=== PATIENT | female | born 1980 | race Caucasian/White ===

== ENCOUNTER 2017-01-09 20:50 | Emergency (ER) | payer OTHER ==
[~2017-01-09] VITALS: Ht 152.4 cm; Wt 81.0 kg
[2017-01-09 21:01] VITALS: Ht 152.4 cm; Wt 81.0 kg
[2017-01-09] MEDS ORDERED: ACET500C5 PO (22:14)
[2017-01-09] MEDS ORDERED: AMO500 PO (22:14)
--- NOTE | 2017-01-09 22:22 | ERD ---
ER Documentation Chief Complaint Date/Time DATE: 01/09/17 TIME: 22:16 Chief Complaint c/o right ear pain x 2 days, no drainage HPI Patient is a 36-year-old 7 month female presents to the emergency department with right ear pain 2 days. Patient denies any active bleeding or discharge. Patient denies any loss of hearing. Patient denies any fevers, chills, nausea, vomiting, cough, abdominal pain, throat pain or rhinorrhea. No recent travel. No sick contacts. Patient denies any pelvic pain, vaginal bleeding, excessive vaginal discharge or loss of fluids. Patient states she does feel kicks. ROS All systems reviewed and are negative except as per history of present illness. Medications Home Meds Active Scripts Acetaminophen* (Tylophen*) 500 Mg Capsule, 1 CAP PO Q6H Y for PAIN AND OR ELEVATED TEMP, #20 CAP Prov:NICOLETTE KNAPP PA-C 01/09/17 Amoxicillin* (Amoxicillin*) 500 Mg Cap, 500 MG PO BID for 10 Days, CAP Prov:NICOLETTE KNAPP PA-C 01/09/17 Allergies Allergies: Coded Allergies: No Known Allergy (Unverified , 06/13/15) PMhx/Soc Medical and Surgical Hx: pt denies Medical Hx, pt denies Surgical Hx Hx Miscellaneous Medical Probl: Yes (None noted ) Hx Alcohol Use: No Hx Substance Use: No Hx Tobacco Use: No Smoking Status: Never smoker FmHx Family History: No diabetes Physical Exam Vitals Vital Signs Date Time Temp Pulse Resp B/P Pulse Ox O2 Delivery O2 Flow Rate FiO2 01/09/17 21:01 98.8 101 18 119/77 98 Physical Exam GENERAL: Well-developed, well-nourished female. Appears in no acute distress. Speaking in full sentences HEAD: Normocephalic, atraumatic. No deformities or ecchymosis. EYE: Pupils equal, round, and reactive to light. EOMs intact. No conjunctival erythema. No eye discharge. ENT: External ear without any masses or tenderness. Right auditory canal appears swollen. Tympanic membrane appears erythematous. Nontender palpation of bilateral mastoid processes.. Nasal mucosa pink with no discharge. Oropharynx is pink without any tonsillar erythema or exudates. No uvula deviation. No kissing tonsils. NECK: Supple. No meningismus. Normal ROM of the neck. LUNG: Clear to auscultation bilaterally. No rhonchi, wheezing, rales or coarse breath sounds. HEART: Regular rate and rhythm. No murmurs, rubs or gallops. ABDOMEN: Gravid abdomen. Positive bowel sounds in all four quadrants. No rebound tenderness, no guarding. (-) McBurney's point tenderness. No CVA tenderness. BACK: No midline tenderness. EXTREMITIES: Equal pulses bilaterally. No peripheral clubbing, cyanosis or edema. NEUROLOGIC: Alert and oriented to person, place and time. Moving all four extremities. 5/5 strength in all extremities. Normal speech. Steady gait. SKIN: Normal color. Warm and dry. No rashes or lesions. Procedures/MDM MEDICAL DECISION MAKING: This is a 36-year-old female presents with right ear pain 2 days.. Vital signs were reviewed. Patient was afebrile. Patient was not hypoxic. Patient denied any pelvic pain, vaginal bleeding, vaginal discharge or loss of fluids. Given these findings, the patient's presentation is most consistent with acute otitis media. Low suspicion for tympanic membrane perforation, mastoiditis, otic barotrauma, TMJ dysfunction, meningitis, sepsis. Patient will be discharged with instructions to go upstairs to the BUSINESS CONTINUITY GLOBAL DIRECTOR floor for clearance from the OB team. Nursing staff aware and will direct the patient upstairs. PRESCRIPTIONS: Amoxicillin, Tylenol DISCHARGE: At this time, patient is stable for discharge and outpatient management. Patient will be discharged with instructions to go to the BUSINESS CONTINUITY GLOBAL DIRECTOR floor for clearance from BUSINESS CONTINUITY GLOBAL DIRECTOR. I have instructed the patient to follow-up with his/her primary care physician in 1-2 days. I have discussed with the patient the possibility of needing to see a specialist for further workup and diagnostic studies if the pain persists. I have instructed the patient to promptly return to the ER at any time for any new or worsening symptoms including increased pain , fever, swelling, discharge or hearing loss. The patient and/or family expressed understanding of and agreement with this plan. All questions were answered. Home care instructions were provided. Departure Diagnosis: Primary Impression: Otitis media, right Otitis media type: unspecified Chronicity: unspecified Qualified Code: H66.91 - Right otitis media, unspecified chronicity, unspecified otitis media type Condition: Stable Patient Instructions: Otitis Media, Abx Tx (Adult) Referrals: COMMUNITY CLINICS YOU HAVE RECEIVED A MEDICAL SCREENING EXAM AND THE RESULTS INDICATE THAT YOU DO NOT HAVE A CONDITION THAT REQUIRES URGENT TREATMENT IN THE EMERGENCY DEPARTMENT. FURTHER EVALUATION AND TREATMENT OF YOUR CONDITION CAN WAIT UNTIL YOU ARE SEEN IN YOUR DOCTORS OFFICE WITHIN THE NEXT 1-2 DAYS. IT IS YOUR RESPONSIBILITY TO MAKE AN APPOINTMENT FOR FOLOW-UP CARE. IF YOU HAVE A PRIMARY DOCTOR --you should call your primary doctor and schedule an appointment IF YOU DO NOT HAVE A PRIMARY DOCTOR YOU CAN CALL OUR PHYSICIAN REFERRAL HOTLINE AT IF YOU CAN NOT AFFORD TO SEE A PHYSICIAN YOU CAN CHOSE FROM THE FOLLOWING [facility] [address] [facility]. [facility] [address] [facility]. [facility] [address] [facility] [facility] [address] [facility]. [facility] [address] [facility]. [facility] [address] [facility]. [facility] YOU HAVE RECEIVED A MEDICAL SCREENING EXAM AND THE RESULTS INDICATE THAT YOU DO NOT HAVE A CONDITION THAT REQUIRES URGENT TREATMENT IN THE EMERGENCY DEPARTMENT. FURTHER EVALUATION AND TREATMENT OF YOUR CONDITION CAN WAIT UNTIL YOU ARE SEEN IN YOUR DOCTORS OFFICE WITHIN THE NEXT 1-2 DAYS. IT IS YOUR RESPONSIBILITY TO MAKE AN APPOINTMENT FOR FOLOW-UP CARE. IF YOU HAVE A PRIMARY DOCTOR --you should call your primary doctor and schedule and appointment IF YOU DO NOT HAVE A PRIMARY DOCTOR YOU CAN CALL OUR PHYSICIAN REFERRAL HOTLINE AT . IF YOU CAN NOT AFFORD TO SEE A PHYSICIAN YOU CAN CHOSE FROM THE FOLLOWING [facility]: [facility] [address] [place] [address] [facility] [address] [place] [address] [facility] [address] [place] [address] [employer] GLOBAL DIRECTOR [place] [address] [facility] [address] [place] [address] OFFICE FAX TAMI REDDY [address] [place] [address] [address] [place]IS [place] [address] [place] [address] DR CADENA, [facility] [address], [address], [place] [address] [facility] [address] [place] [address] [facility] [address] [place] [address] [address] [facility] [address] - DR TEMPLE LIZZIE [address] [facility]. [address], [place] [address] DR ROMERO, SOF[address]A [address] [facility]. [address], [place] [address] DR TUBBS, [facility] [address] [place], [place] [id number] Additional Instructions: Call your primary care doctor TOMORROW for an appointment during the next 1-2 days.See the doctor sooner or return here if your condition worsens before your appointment time. She will be discharged upstairs for instructions to be cleared by BUSINESS CONTINUITY GLOBAL DIRECTOR. NICOLETTE KNAPP PA-C Jan 09, 2017 22:21
== END 2017-01-09 22:24 | disposition home or self-care (01) ==
LOC: FTE 20:50
DX: H66.91 Otitis media, unspecified, right ear (principal)
CPT/HCPCS: 99283

== ENCOUNTER 2017-01-09 22:45 | Outpatient (CLI) | payer OTHER ==
[~2017-01-09] VITALS: Ht 151.1 cm; Wt 85.6 kg
[~2017-01-09 22:45] MED LIST: ACET500C5 PO; AMO500 PO
[2017-01-09 23:08] VITALS: BP 132/72; PULSE 97; RESP 18
--- NOTE | 2017-01-10 00:19 | PN ---
Triage Information Date/Time January 09, 2017 Weeks of Gestation 28 weeks and 6 days : 3 Para: 2 Diabetes: none Hypertention: none Additional information 36-year-old with IUP at 28 weeks and 6 days was sent from ED after she was seen in the emergency room for right earache. She denied any fever or chills. She was given amoxicillin and Tylenol in the emergency room after she was examined and was diagnosed with ear infection. She denies any headache,. She denies any leaking of fluid vaginal bleeding or decreased movement. Reports her OB history completed by GDM A2 currently on insulin as well as baby aspirin. Objective Vital Signs Date Time Temp Pulse Resp B/P Pulse Ox O2 Delivery O2 Flow Rate FiO2 01/09/17 23:08 98.8 97 18 132/72 Room Air Heart Rate: 130's Heart Rate Comments Category 1 and appropriate for gestational age Exam General appearance: Alert and oriented 4. Patient appears to be in mild distress Abdomen: Soft, gravid, no tenderness NST: Category 1 Results/Medications Imaging Results PROCEDURE: ULTRASOUND OBSTETRICAL CLINICAL INDICATION: 35-year-old female in labor for size and date determination. TECHNIQUE: Multiple sonographic images of the pelvis were obtained. The images were reviewed on a PACS workstation. COMPARISON: Ultrasound OB biophysical profile June 03, 2015. FINDINGS: The cervix is not well visualized. There is a single viable intrauterine gestation. Cardiac activity is present with 159 beats per minute. There is a vertex presentation. Measurements were made in order to determine age. The results are as follows: BPD = 8.93 cm, HC = 32.05 cm, AC = 41.27 cm, FL = 7.76 cm. This yields and estimated gestational age of approximately 37 weeks 2 days. The estimated date of delivery is July 02, 2015. The EFW = 4501 +/- 675 g (9 lb 15 oz). The GP is greater than 97%. The placenta is anterior. There is no evidence for an abruption or placenta previa. IMPRESSION: 1. Single viable intrauterine gestation of approximately 37 weeks 2 days with vertex presentation. 2. The estimated weight is 4501 +/- 675 g (9 lb 15 oz). The GP is greater than 97%. Assessment/Plan IUP at 28 weeks and 6 days Right side otitis Has been evaluated in the ED. Was given amoxicillin and Tylenol No OB issue at this time. Denies any complaint NST category 1 DC home Continue amoxicillin and Tylenol and follow-up with her primary OB in 2 days labor precaution and strict kick count discussed with the patient Return to triage for any other concerns GARY GHOSH MD Jan 10, 2017 00:18
--- NOTE | 2017-01-10 01:34 | TRIAGE ---
OB Triage Datetime Report Generated by CPN: 01/10/2017 01:34 Datetime: 01/09/2017 23:04 Time of Arrival: 01/09/2017 22:28 EGA: 28.6 Arrived By: Ambulatory Arrived From: Emergency Dept Chief Complaint: Pt brought from ER for NST after being seen for rt earache Movement: Present Contractions: Denies/Absent Rupture of Membranes: Denies Vaginal Bleeding: None Vaginal Discharge: Denies Recent Sexual Intercouse: Denies Abdominal Trauma: Not Applicable Patient Complaints: Other Time Provider Notified: 01/09/2017 23:28 Provider Notified: Dr Lee Initial Plan: NST Datetime: 01/09/2017 23:03 Vaginal Exam Membrane Status: Intact
== END 2017-01-10 00:21 | disposition home or self-care (01) ==
LOC: OBT 22:45 → L-D 22:46 → OBT 01-10 00:21
PROVIDERS: ATTEND Obstetrics & Gynecology
DX: O98.812 Other maternal infectious and parasitic diseases complicating pregnancy, second trimester (principal); Z3A.28 28 weeks gestation of pregnancy; H66.91 Otitis media, unspecified, right ear
CPT/HCPCS: G0463

== ENCOUNTER 2017-02-19 14:54 | Outpatient (CLI) | payer OTHER ==
[~2017-02-19] VITALS: Ht 149.9 cm; Wt 89.0 kg
[~2017-02-19 14:54] MED LIST changes: +PREN-39 PO; +PRENAT PO
[2017-02-19 15:21] VITALS: BP 175/79; PULSE 98; RESP 18
[2017-02-19] MEDS ORDERED: PRENAT PO (15:55)
[2017-02-19] MEDS ORDERED: NOVO7030 SC ×2 (15:56→15:57)
[2017-02-19] MEDS ORDERED: NPH SQ ×2 (15:58→16:44)
[2017-02-19] MEDS ORDERED: SS SC ×2 (15:59→16:43)
--- NOTE | 2017-02-19 17:32 | RADRPT ---
PROCEDURE: US biophysical profile. CLINICAL INDICATION: Decreased motion. TECHNIQUE: Multiple sonographic images of the uterus were obtained. The images were revi ewed on a PACS workstation. COMPARISON: No prior studies are available for comparison. FINDINGS: There is a single live intrauterine gestation. heart rate is 141 beats per minute. The position is cephalic. The placenta is posterior grade II with no abruption or previa. The SOMMER is 13.4 cm. (Normal = 5-20 cm.) Breathing Movement: 2 Gross Body Movement: 2 Tone: 2 Qualitative Amniotic Fluid Volume: 2 TOTAL: 8 IMPRESSION: 1. The biophysical score is 8/8. RPTAT: QQ .Shady Wilson MD, MD Date Time Electronically viewed and signed by .Shady Wilson MD, on 02/19/2017 17:31 .R/
[2017-02-19 17:41] LABS: BASOPHILS % 0.3 % (0.0-2.0); EOSINOPHILS % 0.6 % (0.0-7.0); HEMATOCRIT 34.8 % (37.0-47.0); HEMOGLOBIN 11.6 g/dl (12.0-16.0); LYMPHOCYTES # 1.7 10^3/ul (0.8-2.9); LYMPHOCYTES % 26.4 % (15.0-51.0); MEAN CORPUSCULAR HGB CONC 33.3 g/dl (32.0-37.0); MEAN CORPUSCULAR VOLUME 80.9 fl (82.0-101.0); MEAN PLATELET VOLUME 12.1 fl (7.4-10.4); MONOCYTE # 0.5 10^3/ul (0.3-0.9); MONOCYTES % 7.4 % (0.0-11.0); NEUTROPHILS % 64.8 % (39.0-77.0); NUCLEATED RED BLOOD CELLS% 0.3 /100WBC (0.0-0.0); PLATELET COUNT 220 10^3/UL (140-415); RED CELL DISTRIBUTION WIDTH 13.1 % (11.5-14.5); WHITE BLOOD COUNT 6.5 10^3/ul (4.8-10.8)
[2017-02-19 17:59] LABS: ADD UMIC YES; UR ASCORBIC ACID NEGATIVE (NEGATIVE); UR BACTERIA FEW /HPF (NONE SEEN); UR BILIRUBIN (Dip) NEGATIVE (NEGATIVE); UR BLOOD (Dip) 1+ mg/dL (NEGATIVE); UR CLARITY TURBID (CLEAR); UR COLOR AMBER (YELLOW); UR GLUCOSE (Dip) 2+ mg/dL (NEGATIVE); UR KETONES (Dip) TRACE mg/dL (NEGATIVE); UR LEUKOCYTE ESTERASE (Dip) 3+ Leu/ul (NEGATIVE); UR MUCUS FEW /HPF (NONE SEEN); UR NITRITE (Dip) NEGATIVE (NEGATIVE); UR RBC 24 /HPF (0-5); UR SPECIFIC GRAVITY (Dip) 1.027 (1.003-1.030); UR SQUAMOUS EPITHELIAL CELL MANY /HPF (FEW); UR TOTAL PROTEIN (Dip) 2+ mg/dl (NEGATIVE); UR UROBILINOGEN (Dip) NEGATIVE (NEGATIVE)
[2017-02-19 18:01] LABS: INR 0.94; PROTIME 12.6 Sec (12.2-14.2)
[2017-02-19 18:06] LABS: ALBUMIN 3.2 g/dl (3.3-4.9); ALBUMIN/GLOBULIN RATIO 0.86; BILIRUBIN,INDIRECT 0.1 mg/dl (0-1.1); BILIRUBIN,TOTAL 0.1 mg/dl (0.2-1.3); CALCIUM 8.7 mg/dl (8.4-10.2); CREATININE 0.49 mg/dl (0.44-1.00); POTASSIUM 3.4 mmol/L (3.5-5.1); TOTAL PROTEIN 6.9 g/dl (6.1-8.1)
--- NOTE | 2017-02-19 18:24 | PN ---
Triage Information Date/Time 35+ Reason for visit: DFM Weeks of Gestation 35+ /Para 3/2 Hypertention: none Objective Vital Signs Date Time Temp Pulse Resp B/P Pulse Ox O2 Delivery O2 Flow Rate FiO2 02/19/17 15:21 98.1 98 18 175/79 98 Room Air Heart Rate: 140's Contractions: None Results/Medications Result Diagram: 02/19/17 1715 02/19/17 1715 Results 24 hrs Laboratory Tests Test 02/19/17 15:00 02/19/17 17:15 Urine Color MERRY Urine Clarity TURBID A Urine pH 5.0 Urine Specific [place] 1.027 Urine Ketones TRACE A Urine Nitrite NEGATIVE Urine Bilirubin NEGATIVE Urine Urobilinogen NEGATIVE Urine Leukocyte Esterase 3+ H Urine Microscopic RBC 24 H Urine Microscopic WBC > 182 H Urine Squamous Epithelial Cells MANY A Urine Bacteria FEW A Urine Mucus FEW A Urine Hemoglobin 1+ H Urine Glucose 2+ H Urine Total Protein 2+ H White Blood Count 6.5 # Red Blood Count 4.30 Hemoglobin 11.6 L Hematocrit 34.8 L Mean Corpuscular Volume 80.9 L Mean Corpuscular Hemoglobin 27.0 L Mean Corpuscular Hemoglobin Concent 33.3 Red Cell Distribution Width 13.1 Platelet Count 220 Mean Platelet Volume 12.1 H Neutrophils % 64.8 Lymphocytes % 26.4 Monocytes % 7.4 Eosinophils % 0.6 Basophils % 0.3 Nucleated Red Blood Cells % 0.3 H Neutrophils # (Manual) 4 Lymphocytes # 1.7 Monocytes # 0.5 Eosinophils # 0.0 Basophils # 0.0 Nucleated Red Blood Cells # 0.0 Prothrombin Time 12.6 Prothrombin Time Ratio 1.0 INR International Normalized Ratio 0.94 Activated Partial Thromboplast Time 26.0 Fibrinogen 568.0 H Sodium Level 132 L Potassium Level 3.4 L Chloride Level 104 Carbon Dioxide Level 19 L Anion Gap 12 Blood Urea Nitrogen 11 Creatinine 0.49 Glucose Level 105 Uric Acid 4.0 Calcium Level 8.7 Total Bilirubin 0.1 L Direct Bilirubin 0.00 Indirect Bilirubin 0.1 Aspartate Amino Transf (AST/SGOT) 21 Alanine Aminotransferase (ALT/SGPT) 32 Alkaline Phosphatase 168 H Total Protein 6.9 Albumin 3.2 L Globulin 3.70 H Albumin/Globulin Ratio 0.86 Disposition: Discharge Assessment/Plan NST reassring NPP 02/05 24 hr urine for pr RTH in a day for BP monitoring and 24 hr pr results Patients' questions answered MARIA L HILL M.D. Feb 19, 2017 18:24
--- NOTE | 2017-02-19 18:25 | TRIAGE ---
OB Triage Datetime Report Generated by CPN: 02/19/2017 18:25 Datetime: 02/19/2017 17:30 Maternal Assessment Level of Consciousness: Fully Conscious Labor Evaluation Frequency: 0 Monitor Mode: External Pattern: Normal: <= 5 Contractions in 10 Minutes Resting Tone [place]: Relaxed Heart Rate FHR Baseline Rate: 135 Monitor Mode: External US FHR Baseline Changes: No Baseline Change Variability: Moderate 6-25 bpm Accelerations: 15X15 Decelerations: None Pain Assessment Pain Scale: 0 Pain Goal: 3 Vaginal Exam Membrane Status: Intact Vaginal Bleeding: None Datetime: 02/19/2017 16:37 Labor Evaluation Frequency: 0 Monitor Mode: External Pattern: Normal: <= 5 Contractions in 10 Minutes Resting Tone [place]: Relaxed Heart Rate FHR Baseline Rate: 135 Monitor Mode: External US FHR Baseline Changes: No Baseline Change Variability: Moderate 6-25 bpm Accelerations: 15X15 Decelerations: None Category: Category I Datetime: 02/19/2017 16:35 Monitor Mode: External US Datetime: 02/19/2017 15:47 Labor Evaluation Frequency: 0 Monitor Mode: External Quality: Mild Pattern: Normal: <= 5 Contractions in 10 Minutes Resting Tone [place]: Relaxed Monitor Mode: External US FHR Baseline Changes: No Baseline Change Variability: Moderate 6-25 bpm Accelerations: 15X15 Decelerations: None Datetime: 02/19/2017 15:45 Monitor Mode: External US Datetime: 02/19/2017 15:42 Monitor Mode: External US Datetime: 02/19/2017 15:40 Monitor Mode: External US Datetime: 02/19/2017 15:37 Monitor Mode: External US Datetime: 02/19/2017 15:07 Time of Arrival: 02/19/2017 14:40 EGA: 35.0 Arrived By: Ambulatory Arrived From: Home Chief Complaint: PT SENT FROM NST FOR MINIMAL VARIABILITY. PT PICKED UP SON FROM SCHOOL BEFORE COM ING TO TRIAGE. Movement: Present Contractions: Denies/Absent Rupture of Membranes: Denies Vaginal Bleeding: None Vaginal Discharge: Denies Abdominal Trauma: Not Applicable Patient Complaints: None Time Provider Notified: 02/19/2017 16:24 Provider Notified: DR. MARIE Initial Plan: EFM x2/PIH PANEL/BPP Datetime: 02/19/2017 15:01 Stage of : OB Triage Assessment Type: Triage Maternal Assessment Level of Consciousness: Fully Conscious Headache: Denies Blurred Vision: No Respiratory Effort: Unlabored; Regular Rhythm; Equal Expansion Breath Sounds, Left: Clear and Equal Breath Sounds, Right: Clear and Equal Nausea/Vomiting: Denies RUQ Epigastric Pain: Denies Lower Extremities Edema: None Degree: None Upper Extremities Edema: None Degree: None Facial Edema: None Temperature Route: Oral Fall Risk Assessment History of Falling: (0) No Secondary Diagnosis: (0) No Ambulatory Aid: (0) Bedrest/Nurse Assist IV Therapy: (0) No Gait: (0) Normal/Bedrest/Immobile Mental Status: (0) Oriented to Own Ability Fall Score: 0 Fall Risk Score Definition: No Risk: No action required Pain Assessment Pain Scale: 0 Pain Presence: None/Denies Pain Type: N/A Datetime: 01/09/2017 23:28 Stage of : OB Triage Datetime: 01/09/2017 23:18 Stage of : OB Triage Monitor Mode: External US FHR Baseline Changes: No Baseline Change Variability: Moderate 6-25 bpm Accelerations: 15X15 Decelerations: None Category: Category I Datetime: 01/09/2017 23:04 EGA: 29.1 Datetime: 01/09/2017 22:48 Stage of : OB Triage Maternal Assessment Level of Consciousness: Fully Conscious Headache: Denies Blurred Vision: No Respiratory Effort: Unlabored Nausea/Vomiting: Denies RUQ Epigastric Pain: Denies Facial Edema: None Monitor Mode: External Resting Tone [place]: Relaxed Heart Rate FHR Baseline Rate: 140 Monitor Mode: External US FHR Baseline Changes: No Baseline Change Variability: Moderate 6-25 bpm Accelerations: 15X15 Decelerations: None Category: Category I Pain Assessment Pain Scale: 10 Pain Presence: Constant Pain Type: Stabbing; Ache Pain Location: Head Pain Assessment Comments: earache rt ear
== END 2017-02-19 18:35 | disposition home or self-care (01) ==
LOC: L-D 14:54 → OBT 14:54
PROVIDERS: ATTEND Obstetrics & Gynecology
DX: O36.8130 Decreased fetal movements, third trimester, not applicable or unspecified (principal); Z3A.35 35 weeks gestation of pregnancy
CPT/HCPCS: 36415; 76818; 80053; 81001; 84560; 85025; 85384; 85610; 85730; Z7500; G0463

== ENCOUNTER 2017-02-20 21:44 | Outpatient (CLI) | payer OTHER ==
[~2017-02-20] VITALS: Ht 149.9 cm; Wt 91.0 kg
[~2017-02-20 21:44] MED LIST changes: +NOVO7030 SC; +NPH SQ; +SS SC
[2017-02-20 22:16] VITALS: BP 137/81; PULSE 93; RESP 18
--- NOTE | 2017-02-20 22:47 | NSTRPT ---
NST Information Datetime Report Generated by CPN: 02/20/2017 22:47 Datetime: 02/19/2017 11:03 NST Information EGA: 35.0 Test Number: 6 Time on Monitor: 02/19/2017 11:24 Time off Monitor: 02/19/2017 12:00 NST Duration (Min): 36 Reason for NST: Chronic Hypertension; Diabetes Mellitus; Other Reason for NST Other: A2DM Test and Monitor Explained: Monitor Explained; Test Explained Pulse: 115 Resp: 16 SBP: 116 DBP: 78 Test Evaluation NST Interventions: PO Hydration; Reposition Patient; Acoustic Stimulation Patient States Movement: Present Contraction Frequency: no uc FHR Baseline : 145 Variability: Minimal - <=5bpm Accelerations: 15X15 Decelerations: None FHR Category: Category II NST Results: Questionable Comments: To u/s, cephalic, trev 15.9, fbs 87 1200-NST reviewed by Dr Davis, recommends extended efm in triage, Dr Rosa hull. Pt informs sw itched to Dr Villatoro, [facility]. Call placed to [facility], state, yes she is their pt. Dr Irving hull, Report t ronnie Linares RN in Triage, pt to Triage, with follow up NST appt for 02/22, Pt verbalizes understanding to go to triage for further monitoring. 1205-Report to Dr Villatoro, order received. Electronically Signed By E-Signature: with User ID: [id number] Datetime: 02/14/2017 11:17 NST Information EGA: 34.2 NST Duration (Min): 42 Datetime: 02/11/2017 11:12 NST Information EGA: 33.6 NST Duration (Min): 24 Datetime: 02/07/2017 10:54 NST Information EGA: 33.2 NST Duration (Min): 75 Datetime: 02/04/2017 11:10 NST Information EGA: 32.6 NST Duration (Min): 31 Datetime: 01/31/2017 11:04 NST Information EGA: 32.2 NST Duration (Min): 26
[2017-02-20 23:08] LABS: SCRET 0.49 mg/dl (0.44-1.00)
--- NOTE | 2017-02-21 06:12 | PN ---
Triage Information Date/Time February 20, 2017 Reason for visit: Patient is here to drop 24 hour for protein Weeks of Gestation 35+ weeks /Para Diabetes: gestational Hypertention: induced Additional information 36-year-old female with 35+ weeks with gestational diabetes as well as borderline elevated blood pressure, likely gestational hypertension here today to drop 24 hour urine for protein. She denies any headache, blurred vision or epigastric pain. She denied any decreased movement, uterine contractions or vaginal bleeding or leaking of fluid. She has been seen by perinatologist. Had been seen in NST clinic and been following by NST due to gestational diabetes and hypertension Objective Vital Signs Date Time Temp Pulse Resp B/P Pulse Ox O2 Delivery O2 Flow Rate FiO2 02/20/17 22:16 97.4 93 18 137/81 Room Air Heart Rate: 130's Contractions: >10 Minutes Apart Exam GA: Alert and oriented 4. Patient does not appear to be in any acute distress. Abdomen: Soft, gravid, nontender, fundal height consistent with gestational age. Blood pressure is 110-137/71-81. 24 hour urine for protein: 186 Results/Medications Results 24 hrs Laboratory Tests Test 02/20/17 21:45 Urine Random Creatinine 41.54 Urine Collection Duration 24 Urine Total Volume 24 Hours 2075 Urine Creatinine Timed 24 Creatinine Clearance 122.2 Urine Total Volume (Protein) 2075 Urine Total Protein 24 Hour 186.8 Imaging Results PROCEDURE: US biophysical profile. CLINICAL INDICATION: Decreased motion. TECHNIQUE: Multiple sonographic images of the uterus were obtained. The images were reviewed on a PACS workstation. COMPARISON: No prior studies are available for comparison. FINDINGS: There is a single live intrauterine gestation. heart rate is 141 beats per minute. The position is cephalic. The placenta is posterior grade II with no abruption or previa. The SOMMER is 13.4 cm. (Normal = 5-20 cm.) Breathing Movement: 2 Gross Body Movement: 2 Tone: 2 Qualitative Amniotic Fluid Volume: 2 TOTAL: 8 IMPRESSION: 1. The biophysical score is 8/8. RPTAT: QQ Disposition: Discharge Assessment/Plan Continue follow-up with NST clinic for testing Presumptive precaution discussed Follow-up with OB clinic within the next 24 hours to 48 hours discussed labor precaution and kick count discussed Patient verbalized understanding GARY GHOSH MD Feb 21, 2017 06:12
--- NOTE | 2017-02-21 08:00 | TRIAGE ---
OB Triage Datetime Report Generated by CPN: 02/21/2017 08:00 Datetime: 02/20/2017 23:54 Stage of : OB Triage Datetime: 02/20/2017 23:15 Stage of : OB Triage Monitor Mode: External Pattern: Normal: <= 5 Contractions in 10 Minutes Resting Tone [place]: Relaxed Heart Rate FHR Baseline Rate: 140 Monitor Mode: External US FHR Baseline Changes: No Baseline Change Variability: Moderate 6-25 bpm Accelerations: 15X15 Decelerations: None Category: Category I Datetime: 02/20/2017 22:26 Heart Rate FHR Baseline Rate: 150 Monitor Mode: External US FHR Baseline Changes: No Baseline Change Variability: Moderate 6-25 bpm Accelerations: 15X15 Datetime: 02/20/2017 22:00 Time of Arrival: 02/20/2017 21:40 EGA: 35.1 Arrived By: Ambulatory Arrived From: Home Chief Complaint: w/ hx c/s x1, A@DM and CHTN to triage w/ 24 hr urine collection Movement: Present Contractions: Denies/Absent Rupture of Membranes: Denies Vaginal Bleeding: None Vaginal Discharge: Denies Recent Sexual Intercouse: Denies Abdominal Trauma: Not Applicable Patient Complaints: None Time Provider Notified: 02/20/2017 22:30 Provider Notified: Dr Villatoro Initial Plan: EFM, 24hr urine, creatinine clearance Datetime: 02/20/2017 21:57 Stage of : OB Triage Maternal Assessment Level of Consciousness: Fully Conscious DTR's/Clonus: DTRs 2+; No Clonus Headache: Denies Blurred Vision: No Respiratory Effort: Unlabored Nausea/Vomiting: Denies RUQ Epigastric Pain: Denies Facial Edema: None Labor Evaluation Frequency: placed Monitor Mode: External Resting Tone [place]: Relaxed Heart Rate FHR Baseline Rate: 140 Monitor Mode: External US Pain Assessment Pain Scale: 0 Pain Presence: None/Denies Datetime: 02/19/2017 15:07 EGA: 35.0 Datetime: 02/19/2017 15:01 Fall Risk Assessment Fall Score: 0 Fall Risk Score Definition: No Risk: No action required Datetime: 01/09/2017 23:04 EGA: 29.1
== END 2017-02-21 00:09 | disposition home or self-care (01) ==
LOC: OBT 21:44 → L-D 21:45 → OBT 02-21 00:09
PROVIDERS: ATTEND Obstetrics & Gynecology
DX: O24.419 Gestational diabetes mellitus in pregnancy, unspecified control (principal); Z3A.35 35 weeks gestation of pregnancy; O36.8130 Decreased fetal movements, third trimester, not applicable or unspecified; Z3A.01 Less than 8 weeks gestation of pregnancy
CPT/HCPCS: 82575; 84156; Z7500; G0463

== ENCOUNTER 2017-02-27 16:55 | Outpatient (CLI) | payer OTHER ==
[~2017-02-27] VITALS: Ht 149.9 cm; Wt 90.2 kg
[~2017-02-27 16:55] MED LIST changes: -ACET500C5 PO; -AMO500 PO; -NOVO7030 SC; -PREN-39 PO
[2017-02-27 17:26] LABS: BASOPHILS % 0.5 % (0.0-2.0); EOSINOPHILS # 0.1 10^3/ul (0.0-0.5); EOSINOPHILS % 1.5 % (0.0-7.0); HEMATOCRIT 35.5 % (37.0-47.0); HEMOGLOBIN 11.5 g/dl (12.0-16.0); LYMPHOCYTES % 25.1 % (15.0-51.0); MEAN CORPUSCULAR HGB CONC 32.4 g/dl (32.0-37.0); MEAN CORPUSCULAR VOLUME 80.3 fl (82.0-101.0); MEAN PLATELET VOLUME 11.6 fl (7.4-10.4); MONOCYTE # 0.5 10^3/ul (0.3-0.9); MONOCYTES % 11.8 % (0.0-11.0); NEUTROPHILS % 60.6 % (39.0-77.0); NUCLEATED RED BLOOD CELLS% 0.5 /100WBC (0.0-0.0); PLATELET COUNT 210 10^3/UL (140-415); RED BLOOD COUNT 4.42 10^6/ul (4.20-5.40); RED CELL DISTRIBUTION WIDTH 13.2 % (11.5-14.5)
[2017-02-27 17:51] LABS: ALBUMIN 3.1 g/dl (3.3-4.9); ALBUMIN/GLOBULIN RATIO 0.83; CALCIUM 8.9 mg/dl (8.4-10.2); CREATININE 0.59 mg/dl (0.44-1.00); TOTAL PROTEIN 6.8 g/dl (6.1-8.1)
[2017-02-27 17:59] VITALS: BP 132/84; PULSE 115; RESP 19; Ht 149.9 cm; Wt 90.2 kg
[2017-02-27 20:12] LABS: ADD UMIC YES; UR ASCORBIC ACID NEGATIVE (NEGATIVE); UR BACTERIA FEW /HPF (NONE SEEN); UR BILIRUBIN (Dip) NEGATIVE (NEGATIVE); UR BLOOD (Dip) NEGATIVE (NEGATIVE); UR CLARITY CLEAR (CLEAR); UR COLOR STRAW (YELLOW); UR GLUCOSE (Dip) 3+ mg/dL (NEGATIVE); UR KETONES (Dip) NEGATIVE (NEGATIVE); UR LEUKOCYTE ESTERASE (Dip) 1+ Leu/ul (NEGATIVE); UR NITRITE (Dip) NEGATIVE (NEGATIVE); UR RBC 0 /HPF (0-5); UR SPECIFIC GRAVITY (Dip) 1.014 (1.003-1.030); UR SQUAMOUS EPITHELIAL CELL FEW /HPF (FEW); UR TOTAL PROTEIN (Dip) NEGATIVE (NEGATIVE); UR UROBILINOGEN (Dip) NEGATIVE (NEGATIVE)
--- NOTE | 2017-02-27 20:50 | PN ---
Triage Information Date/Time February 27, 2017 Reason for visit: Sent in from clinic to rule out -induced hypertension Weeks of Gestation 36 weeks /Para 3 para 2 Diabetes: gestational Diabetes management: insulin controlled Hypertention: induced (Questionable -induced hypertension) Additional information 36-year-old female sent in from clinic for possible -induced hypertension Noticed to have blood pressure of 150s over 90s or 100 in the clinic This blood pressure was not repeated in triage unit Denies blurred vision headache or epigastric pain Currently on insulin and has not had antepartum testing for unknown period of time Objective Vital Signs Date Time Temp Pulse Resp B/P Pulse Ox O2 Delivery O2 Flow Rate FiO2 02/27/17 17:59 98.0 115 19 132/84 99 Room Air Heart Rate: 140's Heart Rate Comments Reactive Contractions: None Exam At indicated Results/Medications Result Diagram: 02/27/17 1719 02/27/17 1719 Results 24 hrs Laboratory Tests Test 02/27/17 17:19 02/27/17 19:08 White Blood Count 4.0 #L Red Blood Count 4.42 Hemoglobin 11.5 L Hematocrit 35.5 L Mean Corpuscular Volume 80.3 L Mean Corpuscular Hemoglobin 26.0 L Mean Corpuscular Hemoglobin Concent 32.4 Red Cell Distribution Width 13.2 Platelet Count 210 Mean Platelet Volume 11.6 H Neutrophils % 60.6 Lymphocytes % 25.1 Monocytes % 11.8 H Eosinophils % 1.5 Basophils % 0.5 Nucleated Red Blood Cells % 0.5 H Neutrophils # (Manual) 2.4 Lymphocytes # 1.0 Monocytes # 0.5 Eosinophils # 0.1 Basophils # 0.0 Nucleated Red Blood Cells # 0.0 Sodium Level 135 Potassium Level 4.0 Chloride Level 103 Carbon Dioxide Level 20 L Anion Gap 16 Blood Urea Nitrogen 13 Creatinine 0.59 Glucose Level 233 H Calcium Level 8.9 Total Bilirubin 0.0 L Direct Bilirubin 0.00 Indirect Bilirubin 0.0 Aspartate Amino Transf (AST/SGOT) 21 Alanine Aminotransferase (ALT/SGPT) 31 Alkaline Phosphatase 172 H Total Protein 6.8 Albumin 3.1 L Globulin 3.70 H Albumin/Globulin Ratio 0.83 Urine Color STRAW Urine Clarity CLEAR Urine pH 6.0 Urine Specific [place] 1.014 Urine Ketones NEGATIVE Urine Nitrite NEGATIVE Urine Bilirubin NEGATIVE Urine Urobilinogen NEGATIVE Urine Leukocyte Esterase 1+ H Urine Microscopic RBC 0 Urine Microscopic WBC 1 Urine Squamous Epithelial Cells FEW Urine Bacteria FEW A Urine Hemoglobin NEGATIVE Urine Glucose 3+ H Urine Total Protein NEGATIVE Imaging Results Not available at this point If patient has normal biophysical profile will follow patient as outpatient Disposition: Discharge Assessment/Plan Patient has normal biophysical profile we will follow patient in 2 days in clinic for follow-up Encourage patient to attend antepartum testing The liver possibly at 3738 or 39 weeks. Perinatologist recommendation in that regard ANKUR GOTTLIEB MD Feb 27, 2017 20:50
--- NOTE | 2017-02-27 20:52 | QN ---
Documentation Comment 6-year-old female with class A-II diabetes sent in to rule out - induced hypertension Will encourage the patient to stay in hospital for 24 hour observation Originally disservice decided to follow patient as outpatient however patient appears unreliable in that regard We will try to adjust her sugar in hospital as well ANKUR GOTTLIEB MD Feb 27, 2017 20:52
--- NOTE | 2017-02-27 21:58 | RADRPT ---
PROCEDURE: Obstetrical ultrasound for biophysical profile CLINICAL INDICATION: Biophysical profile. . TECHNIQUE: Obstetrical ultrasound of the uterus for biophysical profile. Transabdominal views are obtained. COMPARISON: 02/19/2017 FINDINGS: Single intrauterine gestation. Presentation: Cephalic. Placenta: Posterior No evidence of placental abruption. No evidence of placenta previa. breathing movement = 2/2 tone = 2/2 motion = 2/2 SOMMER = 2/2 SOMMER = 13.5 cm heart rate: 137 beats per minute IMPRESSION: Single intrauterine gestation. Biophysical profile 02/05 RPTAT: AADD .Sameer Cassidy MD, MD Date Time Electronically viewed and signed by .Sameer Cassidy MD, on 02/27/2017 21:58 .B/
--- NOTE | 2017-02-27 23:01 | TRIAGE ---
OB Triage Datetime Report Generated by CPN: 02/27/2017 23:01 Datetime: 02/27/2017 22:13 Stage of : OB Triage Heart Rate FHR Baseline Rate: 145 Monitor Mode: External US Datetime: 02/27/2017 21:10 Stage of : OB Triage Datetime: 02/27/2017 20:19 Stage of : OB Triage Datetime: 02/27/2017 19:52 Stage of : OB Triage Monitor Mode: External US Datetime: 02/27/2017 19:16 Stage of : OB Triage Monitor Mode: External Resting Tone Straughn: Relaxed Heart Rate FHR Baseline Rate: 140 Monitor Mode: External US FHR Baseline Changes: No Baseline Change Variability: Moderate 6-25 bpm Accelerations: 15X15 Decelerations: None Category: Category I Pain Assessment Pain Scale: 0 Pain Presence: None/Denies Pain Type: N/A Datetime: 02/27/2017 19:14 Stage of : OB Triage Maternal Assessment Level of Consciousness: Fully Conscious DTR's/Clonus: DTRs 1+ Headache: Denies Breath Sounds, Left: Clear and Equal Breath Sounds, Right: Clear and Equal Nausea/Vomiting: Denies RUQ Epigastric Pain: Denies Monitor Mode: External Resting Tone Straughn: Relaxed Heart Rate FHR Baseline Rate: 140 Monitor Mode: External US Variability: Moderate 6-25 bpm Accelerations: 15X15 Decelerations: None Category: Category I Pain Assessment Pain Scale: 0 Pain Presence: None/Denies Pain Type: N/A Pain Goal: 3 Vaginal Exam Membrane Status: Intact Datetime: 02/27/2017 18:31 Comments: PT TO BATHROOMM Datetime: 02/27/2017 18:30 Stage of : OB Triage Maternal Assessment Level of Consciousness: Fully Conscious DTR's/Clonus: DTRs 1+ Headache: Denies Breath Sounds, Left: Clear and Equal Breath Sounds, Right: Clear and Equal Nausea/Vomiting: Denies RUQ Epigastric Pain: Denies Monitor Mode: External Resting Tone Straughn: Relaxed Heart Rate FHR Baseline Rate: 140 Monitor Mode: External US Variability: Moderate 6-25 bpm Accelerations: 15X15 Decelerations: None Category: Category I Pain Assessment Pain Scale: 0 Pain Presence: None/Denies Pain Type: N/A Pain Goal: 3 Vaginal Exam Membrane Status: Intact Datetime: 02/27/2017 18:00 Maternal Assessment Level of Consciousness: Fully Conscious DTR's/Clonus: DTRs 1+ Headache: Denies Blurred Vision: No Respiratory Effort: Unlabored Breath Sounds, Left: Clear and Equal Breath Sounds, Right: Clear and Equal Nausea/Vomiting: Denies RUQ Epigastric Pain: Denies Facial Edema: None Labor Evaluation Frequency: X1 Monitor Mode: External Duration (sec)2399: 60 Quality: Mild Pattern: Normal: <= 5 Contractions in 10 Minutes Resting Tone Straughn: Relaxed Heart Rate FHR Baseline Rate: 140 Monitor Mode: External US Variability: Moderate 6-25 bpm Accelerations: 15X15 Decelerations: None Category: Category I Pain Assessment Pain Scale: 0 Pain Presence: None/Denies Pain Type: N/A Pain Goal: 3 Vaginal Exam Membrane Status: Intact Datetime: 02/27/2017 16:48 Time of Arrival: 02/27/2017 16:48 EGA: 36.2 Arrived By: Ambulatory Arrived From: Office Chief Complaint: PT CAME IN FROM CLINIC WITH ORDERS FOR ELEVATED BLOOD. PT DENIES ANY EPIGASTRIC P AIN, HEADACHE, GENERALIZED SWELLING AT THIS TIME AND DTR'S ARE +1, NEGATIVE CLONUS. Movement: Present Contractions: Denies/Absent Rupture of Membranes: Denies Vaginal Discharge: Denies Recent Sexual Intercouse: Denies Abdominal Trauma: Not Applicable Patient Complaints: Other Additional Patient Complaints: DENIES ANY OTHER COMPLAINT Time Provider Notified: 02/27/2017 20:00 Provider Notified: Dr Villatoro Initial Plan: PIH LABS Datetime: 02/20/2017 22:00 EGA: 35.2 Datetime: 02/19/2017 15:07 EGA: 35.1 Datetime: 02/19/2017 15:01 Fall Risk Assessment Fall Score: 0 Fall Risk Score Definition: No Risk: No action required Datetime: 01/09/2017 23:04 EGA: 29.2
== END 2017-02-27 22:32 | disposition home or self-care (01) ==
LOC: OBT 16:55 → L-D 16:55 → OBT 22:32
PROVIDERS: ATTEND Obstetrics & Gynecology
DX: O24.419 Gestational diabetes mellitus in pregnancy, unspecified control (principal); Z3A.36 36 weeks gestation of pregnancy
CPT/HCPCS: 36415; 76818; 80053; 81001; 85025; G0463

== ENCOUNTER 2017-03-01 15:54 | Outpatient (CLI) | payer OTHER ==
[~2017-03-01] VITALS: Ht 149.9 cm; Wt 90.8 kg
--- NOTE | 2017-03-01 17:03 | RADRPT ---
PROCEDURE: US OB biophysical profile. CLINICAL INDICATION: decreased movements, PIH TECHNIQUE: Multiple sonographic images of the pelvis were obtained. The images were reviewed on a PACS workstation. COMPARISON: US PELVIS 02/27/2017 FINDINGS: There is a single viable intrauterine gestation. Cardiac activity is present with 156 beats per min [place]. There is a transverse maternal right presentation. The placenta is fundal. There is no evidence of placental abruption. There is a normal amount of amniotic fluid with an SOMMER = 12.9 cm. Incidentally noted is edema in the scalp. Biophysical profile: movement 2/2 tone 2/2. breathing 2/2 SOMMER 2/2 Total 02/05 RPTAT: AA . IMPRESSION: Normal biophysical profile. Edema noted in the scalp. Close follow-up is recommended. .Jason Ty MD, Date Time Electronically viewed and signed by .Jason Ty MD, MD on 03/01/2017 17:03 .S/
[2017-03-01 17:05] VITALS: Ht 149.9 cm; Wt 90.8 kg
[2017-03-01 17:06] VITALS: BP 117/71; PULSE 121
[2017-03-01 17:19] LABS: SCRET 0.73 mg/dl (0.44-1.00)
--- NOTE | 2017-03-01 18:17 | PN ---
Triage Information Date/Time 03/01/2017 Reason for visit: Sent in for follow-up of -induced hypertension brought to 24 hour urine Weeks of Gestation 36.4 /Para 3 para 2 Diabetes: gestational Hypertention: induced Additional information Sent in for follow-up of possible -induced hypertension at 36 weeks and 4 day Objective Vital Signs Date Time Temp Pulse Resp B/P Pulse Ox O2 Delivery O2 Flow Rate FiO2 03/01/17 17:06 98.0 121 117/71 Heart Rate: 140's Heart Rate Comments Reactive Currently is being followed by antepartum testing twice a week because of diabetes Contractions: None Exam Not applicable Results/Medications Result Diagram: 03/01/17 1634 Results 24 hrs Laboratory Tests Test 03/01/17 16:34 03/01/17 16:36 Creatinine 0.73 Urine Random Creatinine 24.73 Urine Collection Duration 24 Urine Total Volume 24 Hours 2400 Urine Creatinine Timed 24 Creatinine Clearance 56.5 L Urine Total Volume (Protein) 2400 Urine Total Protein 24 Hour 264.0 H Medications Currently on insulin Disposition: Discharge Assessment/Plan Patient has to 5 mg for proteinuria in 24 hour urine collection Probably has mild PIH Currently blood pressures are stable We will follow by biweekly nonstress tests and biophysical profiles Consider delivering baby at 37 or 38 weeks of gestation ANKUR GOTTLIEB MD Mar 01, 2017 18:17
--- NOTE | 2017-03-01 18:58 | TRIAGE ---
OB Triage Datetime Report Generated by CPN: 03/01/2017 18:58 Datetime: 03/01/2017 18:08 Stage of : OB Triage Datetime: 03/01/2017 17:37 Labor Evaluation Frequency: 0 Monitor Mode: External Pattern: Normal: <= 5 Contractions in 10 Minutes Resting Tone [place]: Relaxed Heart Rate FHR Baseline Rate: 155 Monitor Mode: External US Variability: Moderate 6-25 bpm Decelerations: None Pain Assessment Pain Scale: 0 Pain Presence: None/Denies Pain Type: N/A Pain Goal: 3 Pain Relief Measures: Comfort Measures Datetime: 03/01/2017 16:43 Stage of : OB Triage Assessment Type: Triage Maternal Assessment Level of Consciousness: Fully Conscious DTR's/Clonus: DTRs 2+; No Clonus Headache: Denies Blurred Vision: No Respiratory Effort: Unlabored; Regular Rhythm; Equal Expansion Breath Sounds, Left: Clear and Equal Breath Sounds, Right: Clear and Equal Nausea/Vomiting: Denies RUQ Epigastric Pain: Denies Facial Edema: None Temperature Route: Axillary Fall Risk Assessment History of Falling: (0) No Secondary Diagnosis: (0) No Ambulatory Aid: (0) Bedrest/Nurse Assist IV Therapy: (0) No Gait: (0) Normal/Bedrest/Immobile Mental Status: (0) Oriented to Own Ability Fall Score: 0 Fall Risk Score Definition: No Risk: No action required Labor Evaluation Frequency: 0 Monitor Mode: External Pattern: Normal: <= 5 Contractions in 10 Minutes Resting Tone Alda: Relaxed Heart Rate FHR Baseline Rate: 155 Monitor Mode: External US Variability: Moderate 6-25 bpm Decelerations: None Category: Category II Pain Assessment Pain Scale: 0 Pain Presence: None/Denies Pain Type: N/A Pain Goal: 3 Pain Relief Measures: Comfort Measures Datetime: 03/01/2017 16:00 Time of Arrival: 03/01/2017 15:44 EGA: 36.4 Arrived By: Ambulatory Arrived From: Home Chief Complaint: FOLLOW UP 24 HOUR URINE, PIH, DENIES H/A, BLURRY VISION, LEAKING, BLEEDING OR UC 'S Movement: Present Contractions: Denies/Absent Rupture of Membranes: Denies Vaginal Bleeding: None Vaginal Discharge: Denies Recent Sexual Intercouse: Denies Abdominal Trauma: Not Applicable Patient Complaints: None Time Provider Notified: 03/01/2017 18:00 Provider Notified: CYNTHIA Initial Plan: MONITOR, BPP/SOMMER, TOTAL PROTEIN, CREATINE, CREATINE CLEARANCE Datetime: 02/27/2017 16:48 EGA: 36.2 Datetime: 02/20/2017 22:00 EGA: 35.2 Datetime: 02/19/2017 15:07 EGA: 35.1 Datetime: 02/19/2017 15:01 Fall Score: 0 Fall Risk Score Definition: No Risk: No action required Datetime: 01/09/2017 23:04 EGA: 29.2
== END 2017-03-01 18:20 | disposition home or self-care (01) ==
LOC: OBT 15:54 → L-D 15:54 → OBT 18:20
PROVIDERS: ATTEND Obstetrics & Gynecology
DX: O13.3 Gestational [pregnancy-induced] hypertension without significant proteinuria, third trimester (principal); Z3A.36 36 weeks gestation of pregnancy
CPT/HCPCS: 76818; 82565; 82575; 84156; Z7500; G0463

== ENCOUNTER 2017-03-05 18:25 | Observation (INO) | payer OTHER ==
[~2017-03-05] VITALS: Ht 149.9 cm; Wt 92.2 kg
[2017-03-05 18:32] VITALS: Ht 149.9 cm; Wt 92.2 kg
[2017-03-05 18:33] VITALS: BP 155/84; PULSE 97
--- NOTE | 2017-03-05 20:39 | RADRPT ---
PROCEDURE: US biophysical profile. CLINICAL INDICATION: induced hypertension TECHNIQUE: Multiple sonographic images of the pelvis were obtained. The images were reviewed on a PACS workstation. COMPARISON: No prior studies are available for comparison. FINDINGS: There is a single viable intrauterine gestation. There is a transverse maternal left presentation. There is a posterior grade II placenta. Amniotic fluid index is measured at 17 cm. The heart rate measures 146 beats per minute. Results of the biophysical profile are as follows breathing movement = 2/2 Gross body movement = 2/2 tone = 2/2 Quantitative amniotic fluid volume = 2/2. This yields a biophysical profile score of 8/8. IMPRESSION: Single viable intrauterine gestation, with biophysical profile of 8/8. RPTAT: HBST .Iain Gilbert MD, MD Date Time Electronically viewed and signed by .Iain Gilbert MD, MD on 03/05/2017 20:39 .T/
[2017-03-05] MEDS ORDERED: MAGNESIUM SULFATE 4 GM/100 ML 100 ML IV ONE (21:30)
[2017-03-05] MEDS ORDERED: ACETAMINOPHEN 325 MG TAB PO PRN (21:30)
[2017-03-05] MEDS: LACTATED RINGER'S 1,000 ML IV SCH (21:53)
[2017-03-05 22:22] LABS: BASOPHILS % 0.3 % (0.0-2.0); EOSINOPHILS % 0.7 % (0.0-7.0); HEMATOCRIT 35.9 % (37.0-47.0); HEMOGLOBIN 11.3 g/dl (12.0-16.0); LYMPHOCYTES # 2.4 10^3/ul (0.8-2.9); LYMPHOCYTES % 39.5 % (15.0-51.0); MEAN CORPUSCULAR HEMOGLOBIN 24.9 pg (29.0-33.0); MEAN CORPUSCULAR HGB CONC 31.5 g/dl (32.0-37.0); MEAN CORPUSCULAR VOLUME 79.2 fl (82.0-101.0); MEAN PLATELET VOLUME 11.7 fl (7.4-10.4); MONOCYTE # 0.4 10^3/ul (0.3-0.9); MONOCYTES % 6.4 % (0.0-11.0); NEUTROPHILS % 52.6 % (39.0-77.0); NUCLEATED RED BLOOD CELLS% 0.7 /100WBC (0.0-0.0); PLATELET COUNT 225 10^3/UL (140-415); RED BLOOD COUNT 4.53 10^6/ul (4.20-5.40); RED CELL DISTRIBUTION WIDTH 13.6 % (11.5-14.5)
[2017-03-05 22:27] LABS: ADD UMIC YES; UR ASCORBIC ACID NEGATIVE (NEGATIVE); UR BACTERIA FEW /HPF (NONE SEEN); UR BILIRUBIN (Dip) NEGATIVE (NEGATIVE); UR BLOOD (Dip) NEGATIVE (NEGATIVE); UR CLARITY CLEAR (CLEAR); UR COLOR STRAW (YELLOW); UR GLUCOSE (Dip) 3+ mg/dL (NEGATIVE); UR KETONES (Dip) NEGATIVE (NEGATIVE); UR LEUKOCYTE ESTERASE (Dip) TRACE Leu/ul (NEGATIVE); UR NITRITE (Dip) NEGATIVE (NEGATIVE); UR RBC 1 /HPF (0-5); UR SPECIFIC GRAVITY (Dip) 1.006 (1.003-1.030); UR SQUAMOUS EPITHELIAL CELL FEW /HPF (FEW); UR TOTAL PROTEIN (Dip) NEGATIVE (NEGATIVE); UR UROBILINOGEN (Dip) NEGATIVE (NEGATIVE)
[2017-03-05 22:44] LABS: INR 0.88; PARTIAL THROMBOPLASTIN TIME 27.5 Sec (25.0-35.0); PROTIME 11.9 Sec (12.2-14.2); PT RATIO 0.9
[2017-03-05 22:46] LABS: ALBUMIN 2.9 g/dl (3.3-4.9); ALBUMIN/GLOBULIN RATIO 0.74; BILIRUBIN,INDIRECT 0.1 mg/dl (0-1.1); BILIRUBIN,TOTAL 0.1 mg/dl (0.2-1.3); CALCIUM 8.3 mg/dl (8.4-10.2); CREATININE 0.52 mg/dl (0.44-1.00); PHOSPHORUS 2.6 mg/dl (2.5-4.9); POTASSIUM 3.9 mmol/L (3.5-5.1); TOTAL PROTEIN 6.8 g/dl (6.1-8.1)
[2017-03-05] MEDS: MAGNESIUM SULFATE 20 GM/500 ML 500 ML IV SCH (22:59)
[2017-03-05] MEDS ORDERED: DEXTROSE 50% 50 ML SYRINGE IV PRN ×2 (23:00)
[2017-03-05] MEDS ORDERED: GLUCOSE GEL 15 GRAM TUBE PO PRN ×2 (23:00)
[2017-03-05] MEDS ORDERED: GLUCAGON 1 MG INJ IM PRN (23:00)
[2017-03-05] MEDS ORDERED: GLUCOSE GEL 15 GRAM TUBE BUCCAL PRN (23:00)
--- NOTE | 2017-03-06 00:24 | HP ---
Date/Time of Note Date/Time of Note DATE: 03/05/17 TIME: 23:58 OB - History Hx of Present Free Text/Dictation 36 y,o (x1 x1 C/S) at 37w1d ,here for f/u biwkly NST and BPP for PIH and also B DM who has been on insulin coverage since GA13w based on Hb A1Cfor this . patient also stated that she was on insulin coverage for 2nd which end up being sectioned for macrosomia. BPP 02/05 with AFI17.4 EFM tracing reactive no U.C but B.P initially 155/84 then multiple re ck for B.P x3 140/90's random BS 233 Admit to antepartum unit for further evaluation and management for PIH and BS and possible delivery by her OB Chief Complaint: f/u for PIH Estimated Due Date: Mar 26, 2017 : 3 Para: 2 Spontaneous : 0 Therapeutic : 0 Care: Other (transferred at 35w from other OB no record from previous OB) Ultrasounds: Other Obstetrical Complications: Gestational Hypertension (B DM) Medical Complications: None Past Family/Social History * Past Medical, Surgical, Family and Obstetric Histories reviewed from chart. Blood Type: O+ Rubella: immune RPR/VDRL: Negative GBS Status: Positive HBsAG: Negative OB Admission Exam Vital Signs Vital Signs Vital Signs Date Time Temp Pulse Resp B/P Pulse Ox O2 Delivery O2 Flow Rate FiO2 03/05/17 18:33 98.2 97 155/84 Physical Exam HEENT: WNL Heart: Rhythm Normal Lungs: Clear, Equal Abdomen: WNL Extremities: Edema Reflexes: Normal Cervical Dilatation: other Station: Other Amniotic Fluid: Other Heart Rate: 140's Accelerations: Accelerations Present Decelerations: No Decelerations Varibility: Moderate Contractions on Admission: None Last 72 hours Lab Results CBC & BMP 03/05/17 21:50 Liver Function Test 03/05/17 21:50 Alanine Aminotransferase (ALT/SGPT) 21 Albumin 2.9 L Alkaline Phosphatase 189 H Aspartate Amino Transf (AST/SGOT) 17 Direct Bilirubin 0.00 Total Protein 6.8 OB Assessment/Plan Reason for admission: observation Other Assessment: IUP 37w1d PIH BDM with previous section Plan: Section Other plan: up to her OB for repeat section MICHELLE DE LOS SANTOS MD Mar 06, 2017 00:17
[2017-03-06] MEDS: ACCU-CHEK XX SCH ×8 (05:00→11:30)
[2017-03-06] MEDS ORDERED: DEXTROSE 5%-LR 1,000 ML IV PRN (05:00)
[2017-03-06] MEDS: LACTATED RINGER'S 1,000 ML IV SCH ×2 (06:52→18:07)
[2017-03-06] MEDS ORDERED: INSULIN REGULAR, HUMAN 100 UNIT/1 ML 3ML VIAL SC SCH ×2 (07:05→17:05)
[2017-03-06] MEDS ORDERED: NPH, HUMAN INSULIN ISOPHANE 3ML VIAL SC SCH ×2 (07:05→21:00)
--- NOTE | 2017-03-06 07:28 | TRIAGE ---
OB Triage Datetime Report Generated by CPN: 03/06/2017 07:28 Datetime: 03/06/2017 07:16 Stage of : Antepartum Maternal Assessment Level of Consciousness: Fully Conscious DTR's/Clonus: No Clonus Headache: Denies Breath Sounds, Left: Clear and Equal Breath Sounds, Right: Clear and Equal Nausea/Vomiting: Denies RUQ Epigastric Pain: Denies Labor Evaluation Frequency: 4-5 Monitor Mode: External Duration (sec)2399: 60-90 Quality: Mild Pattern: Normal: <= 5 Contractions in 10 Minutes Resting Tone [place]: Relaxed Heart Rate FHR Baseline Rate: 145 Monitor Mode: External US Variability: Moderate 6-25 bpm Accelerations: 10X10 Decelerations: None Category: Category I Pain Assessment Pain Scale: 0 Pain Presence: None/Denies Pain Type: N/A Vaginal Exam Membrane Status: Intact Datetime: 03/06/2017 06:55 Bedside Blood Glucose: 138 Datetime: 03/06/2017 06:16 Stage of : Antepartum Maternal Assessment Level of Consciousness: Fully Conscious DTR's/Clonus: No Clonus Headache: Denies Blurred Vision: No Breath Sounds, Left: Clear and Equal Breath Sounds, Right: Clear and Equal Nausea/Vomiting: Denies RUQ Epigastric Pain: Denies Facial Edema: None Labor Evaluation Frequency: 4-5 Monitor Mode: External Duration (sec)2399: 60-90 Quality: Mild Pattern: Normal: <= 5 Contractions in 10 Minutes Resting Tone [place]: Relaxed Heart Rate FHR Baseline Rate: 145 Monitor Mode: External US Variability: Moderate 6-25 bpm Accelerations: 10X10 Decelerations: None Category: Category I Pain Assessment Pain Scale: 0 Pain Presence: None/Denies Pain Type: N/A Pain Assessment Comments: pt denies feeling uc contractions Vaginal Exam Membrane Status: Intact Datetime: 03/06/2017 05:16 Stage of : Antepartum Maternal Assessment Level of Consciousness: Fully Conscious DTR's/Clonus: No Clonus Headache: Denies Breath Sounds, Left: Clear and Equal Breath Sounds, Right: Diminished Nausea/Vomiting: Denies RUQ Epigastric Pain: Denies Labor Evaluation Frequency: 4-6 Monitor Mode: External Duration (sec)2399: 50-80 Quality: Mild Pattern: Normal: <= 5 Contractions in 10 Minutes Resting Tone [place]: Relaxed Heart Rate FHR Baseline Rate: 145 Monitor Mode: External US Variability: Moderate 6-25 bpm Decelerations: None Category: Category I Pain Assessment Pain Scale: 0 Pain Presence: None/Denies Pain Type: N/A Vaginal Exam Membrane Status: Intact Datetime: 03/06/2017 05:02 Bedside Blood Glucose: 163 Datetime: 03/06/2017 04:17 Stage of : Antepartum Maternal Assessment Level of Consciousness: Fully Conscious DTR's/Clonus: No Clonus Headache: Denies Blurred Vision: No Respiratory Effort: Unlabored Breath Sounds, Left: Clear and Equal Breath Sounds, Right: Diminished Nausea/Vomiting: Denies RUQ Epigastric Pain: Denies Facial Edema: None Labor Evaluation Frequency: 4-6 Monitor Mode: External Duration (sec)2399: 50-80 Quality: Mild Pattern: Normal: <= 5 Contractions in 10 Minutes Resting Tone [place]: Relaxed Heart Rate FHR Baseline Rate: 145 Monitor Mode: External US Variability: Moderate 6-25 bpm Decelerations: None Pain Assessment Pain Scale: 0 Pain Presence: None/Denies Pain Type: N/A Vaginal Exam Membrane Status: Intact Datetime: 03/06/2017 03:48 Comments: LOST OF CONTACT Datetime: 03/06/2017 03:24 Comments: LOST OF CONTACT Datetime: 03/06/2017 03:16 Stage of : Antepartum Labor Evaluation Frequency: 7-8 Monitor Mode: External Duration (sec)2399: 60-90 Quality: Mild Pattern: Normal: <= 5 Contractions in 10 Minutes Resting Tone [place]: Relaxed Monitor Mode: External US FHR Baseline Changes: No Baseline Change Variability: Moderate 6-25 bpm Accelerations: 10X10 Decelerations: None Category: Category I Pain Assessment Pain Scale: 0 Pain Presence: None/Denies Pain Type: N/A Vaginal Exam Membrane Status: Intact Datetime: 03/06/2017 03:00 Stage of : Antepartum Maternal Assessment Level of Consciousness: Fully Conscious DTR's/Clonus: No Clonus Headache: Denies Blurred Vision: No Nausea/Vomiting: Denies RUQ Epigastric Pain: Denies Facial Edema: None Labor Evaluation Frequency: 4-5 Monitor Mode: External Duration (sec)2399: 60-80 Quality: Mild Pattern: Normal: <= 5 Contractions in 10 Minutes Resting Tone [place]: Relaxed Heart Rate FHR Baseline Rate: 150 Variability: Moderate 6-25 bpm Accelerations: 10X10 Decelerations: None Category: Category I Vaginal Exam Membrane Status: Intact Datetime: 03/06/2017 02:33 Stage of : Antepartum Datetime: 03/06/2017 02:19 Stage of : Antepartum Datetime: 03/06/2017 02:17 Stage of : Antepartum Labor Evaluation Frequency: 4-5 Monitor Mode: External Duration (sec)2399: 60-80 Quality: Mild Pattern: Normal: <= 5 Contractions in 10 Minutes Resting Tone [place]: Relaxed Heart Rate FHR Baseline Rate: 150 Monitor Mode: External US Variability: Minimal - Undetectable to <=5 bpm Decelerations: Variable Category: Category II Comments: INTERVENTIONS APPLIED, TURNING AND REPOSITON, OXYGEN APPLIED. WILL CALL MD FILIBERTO Vaginal Exam Membrane Status: Intact Datetime: 03/06/2017 01:16 Stage of : Antepartum Labor Evaluation Frequency: irreuglar Monitor Mode: External Duration (sec)2399: 40-60 Quality: Mild Pattern: Normal: <= 5 Contractions in 10 Minutes Resting Tone [place]: Relaxed Heart Rate FHR Baseline Rate: 150 Monitor Mode: External US Variability: Moderate 6-25 bpm Accelerations: 10X10 Decelerations: Early; Variable Category: Category II Pain Assessment Pain Scale: 0 Pain Presence: None/Denies Pain Type: N/A Vaginal Exam Membrane Status: Intact Datetime: 03/06/2017 01:00 Stage of : Antepartum Maternal Assessment Level of Consciousness: Fully Conscious DTR's/Clonus: No Clonus Headache: Denies Blurred Vision: No Nausea/Vomiting: Denies RUQ Epigastric Pain: Denies Facial Edema: None Labor Evaluation Frequency: IRREGULAR Monitor Mode: External Duration (sec)2399: 60-80 Quality: Mild Pattern: Normal: <= 5 Contractions in 10 Minutes Resting Tone [place]: Relaxed Heart Rate FHR Baseline Rate: 150 Variability: Moderate 6-25 bpm Accelerations: 15X15 Decelerations: None Category: Category I Pain Assessment Pain Scale: 0 Pain Presence: None/Denies Pain Type: N/A Pain Assessment Comments: ABDOMEN SOFT ON PALPATION Vaginal Exam Membrane Status: Intact Datetime: 03/06/2017 00:26 Bedside Blood Glucose: 120 Datetime: 03/06/2017 00:21 Time of Arrival: 03/06/2017 00:21 EGA: 37.2 Arrived By: Transfer Arrived From: Other Unit in Hospital Datetime: 03/06/2017 00:16 Stage of : Antepartum Assessment Type: Admission Assessment Maternal Assessment Level of Consciousness: Fully Conscious DTR's/Clonus: DTRs 2+; No Clonus Headache: Denies Blurred Vision: No Respiratory Effort: Unlabored; Regular Rhythm; Equal Expansion Breath Sounds, Left: Clear and Equal Breath Sounds, Right: Clear and Equal Nausea/Vomiting: Denies RUQ Epigastric Pain: Denies Lower Extremities Edema: Bilateral Lower Extremities Degree: 2+ Upper Extremities Edema: Bilateral Upper Extremities Degree: 1+ Facial Edema: None Temperature Route: Oral Fall Risk Assessment History of Falling: (0) No Secondary Diagnosis: (0) No Ambulatory Aid: (0) Bedrest/Nurse Assist IV Therapy: (20) Yes Gait: (0) Normal/Bedrest/Immobile Mental Status: (0) Oriented to Own Ability Fall Score: 20 Fall Risk Score Definition: No Risk: No action required Datetime: 03/05/2017 23:45 Stage of : OB Triage Labor Evaluation Frequency: x2 Monitor Mode: External Duration (sec)2399: 40-50 Quality: Mild Pattern: Normal: <= 5 Contractions in 10 Minutes Resting Tone [place]: Relaxed Heart Rate FHR Baseline Rate: 145 Monitor Mode: External US Variability: Moderate 6-25 bpm Accelerations: 15X15 Decelerations: Variable Category: Category II Datetime: 03/05/2017 23:00 Stage of : OB Triage Labor Evaluation Frequency: x3 Monitor Mode: External Duration (sec)2399: 40-70 Quality: Mild Pattern: Normal: <= 5 Contractions in 10 Minutes Resting Tone [place]: Relaxed Heart Rate FHR Baseline Rate: 150 Monitor Mode: External US Variability: Moderate 6-25 bpm Accelerations: 15X15 Decelerations: Variable Category: Category II Datetime: 03/05/2017 22:00 Stage of : OB Triage Labor Evaluation Frequency: x3 Monitor Mode: External Duration (sec)2399: 50-60 Quality: Mild Pattern: Normal: <= 5 Contractions in 10 Minutes Resting Tone [place]: Relaxed Heart Rate FHR Baseline Rate: 145 Monitor Mode: External US Variability: Moderate 6-25 bpm Accelerations: 15X15 Decelerations: None Category: Category I Datetime: 03/05/2017 21:00 Stage of : OB Triage Labor Evaluation Frequency: x3 Monitor Mode: External Duration (sec)2399: 40-70 Quality: Mild Pattern: Normal: <= 5 Contractions in 10 Minutes Resting Tone [place]: Relaxed Heart Rate FHR Baseline Rate: 150 Monitor Mode: External US FHR Baseline Changes: No Baseline Change Variability: Moderate 6-25 bpm Accelerations: 15X15 Decelerations: None Category: Category I Datetime: 03/05/2017 20:00 Stage of : OB Triage Labor Evaluation Frequency: Unable to assess Monitor Mode: External Heart Rate FHR Baseline Rate: 150 Monitor Mode: External US Variability: Moderate 6-25 bpm Accelerations: 10X10 Decelerations: None Category: Category I Datetime: 03/05/2017 19:57 Stage of : OB Triage Datetime: 03/05/2017 19:11 Stage of : OB Triage Assessment Type: Triage Maternal Assessment Level of Consciousness: Fully Conscious DTR's/Clonus: DTRs 2+; No Clonus Headache: Denies Blurred Vision: No Respiratory Effort: Unlabored; Regular Rhythm; Equal Expansion Breath Sounds, Left: Clear and Equal Breath Sounds, Right: Clear and Equal Nausea/Vomiting: Denies RUQ Epigastric Pain: Denies Lower Extremities Edema: Bilateral Lower Extremities Degree: Pitting Upper Extremities Edema: None Degree: None Facial Edema: None Temperature Route: Oral Fall Risk Assessment History of Falling: (0) No Secondary Diagnosis: (0) No Ambulatory Aid: (0) Bedrest/Nurse Assist IV Therapy: (0) No Gait: (0) Normal/Bedrest/Immobile Mental Status: (0) Oriented to Own Ability Fall Score: 0 Fall Risk Score Definition: No Risk: No action required Datetime: 03/05/2017 18:50 Stage of : OB Triage Assessment Type: Triage Maternal Assessment Level of Consciousness: Fully Conscious DTR's/Clonus: DTRs 2+; No Clonus Headache: Denies Blurred Vision: No Respiratory Effort: Unlabored; Regular Rhythm; Equal Expansion Breath Sounds, Left: Clear and Equal Breath Sounds, Right: Clear and Equal Nausea/Vomiting: Denies RUQ Epigastric Pain: Denies Facial Edema: None Temperature Route: Axillary Fall Risk Assessment History of Falling: (0) No Secondary Diagnosis: (0) No Ambulatory Aid: (0) Bedrest/Nurse Assist IV Therapy: (0) No Gait: (0) Normal/Bedrest/Immobile Mental Status: (0) Oriented to Own Ability Fall Score: 0 Fall Risk Score Definition: No Risk: No action required Labor Evaluation Frequency: 0 Monitor Mode: External Quality: Mild Pattern: Normal: <= 5 Contractions in 10 Minutes Heart Rate FHR Baseline Rate: 150 Monitor Mode: External US Variability: Moderate 6-25 bpm Decelerations: None Category: Category II Pain Assessment Pain Scale: 0 Pain Presence: None/Denies Pain Type: N/A Pain Goal: 3 Pain Relief Measures: Comfort Measures Datetime: 03/05/2017 18:48 Time of Arrival: 03/05/2017 18:13 EGA: 37.1 Arrived By: Ambulatory Arrived From: Home Chief Complaint: follow up pih, here for bpp/trev, denies headache, blurry vision, uc's, bleeding or leaking Movement: Present Contractions: Denies/Absent Rupture of Membranes: Denies Vaginal Bleeding: None Vaginal Discharge: Denies Recent Sexual Intercouse: Denies Abdominal Trauma: Not Applicable Patient Complaints: None Time Provider Notified: 03/05/2017 18:50 Provider Notified: meir Initial Plan: monitor, bpp/nst Datetime: 03/01/2017 16:43 Fall Score: 0 Fall Risk Score Definition: No Risk: No action required Datetime: 03/01/2017 16:00 EGA: 36.4 Datetime: 02/27/2017 16:48 EGA: 36.2 Datetime: 02/20/2017 22:00 EGA: 35.2 Datetime: 02/19/2017 15:07 EGA: 35.1 Datetime: 02/19/2017 15:01 Fall Score: 0 Fall Risk Score Definition: No Risk: No action required Datetime: 01/09/2017 23:04 EGA: 29.2
[2017-03-06] MEDS: MAGNESIUM SULFATE 20 GM/500 ML 500 ML IV SCH (07:59)
[2017-03-06] MEDS ORDERED: PRENATAL VITAMIN PO SCH (09:00)
[2017-03-06] MEDS ORDERED: CALCIUM CARBONATE 1.25 GM TAB PO SCH (09:00)
[2017-03-06] MEDS ORDERED: CEFAZOLIN 2 GM/50 ML (PMX) 50 ML IV SCH (11:30)
[2017-03-06] MEDS ORDERED: METHYLERGONOVINE 0.2 MG INJ IM PRN (11:30)
[2017-03-06] MEDS ORDERED: MISOPROSTOL 200 MCG TAB PR PRN (11:30)
[2017-03-06] MEDS ORDERED: CARBOPROST 250 MCG INJ IM PRN (11:30)
[2017-03-06] MEDS ORDERED: OXYTOCIN 30 UNITS/LR 500 ML IV PRN (11:30)
[2017-03-06] MEDS ORDERED: INSULIN REGULAR, HUMAN 100 UNIT/1 ML 3ML VIAL SC ONE (16:30)
--- NOTE | 2017-03-06 17:02 | RADRPT ---
PROCEDURE: OB ultrasound for biophysical profile CLINICAL INDICATION: Poor tone. TECHNIQUE: Multiple sonographic images of the pelvis were obtained. Transabdominal views of the g ravid uterus are available for review. The images were reviewed on a PACS workstation. COMPARISON: Biophysical profile dated 03/05/2017 FINDINGS: breathing movement = 2/2 tone = 2/2 motion = 2/2 SOMMER = 2/2 SOMMER = 21.7 cm Single live intrauterine with cardiac activity of 148 bpm. position is cephal ic. The placenta is posterior. IMPRESSION: 1. Single live intrauterine gestation. 2. Biophysical profile = 02/05. 3. SOMMER = 21.7 cm. RPTAT: HH .Lee Ann Egan MD, Date Time Electronically viewed and signed by .Lee Ann Egan MD, on 03/06/2017 17:01 .G/
--- NOTE | 2017-03-06 18:36 | DS ---
Date/Time of Note Date/Time of Note Patient signed out AGAINST MEDICAL ADVICE DATE: 03/06/17 TIME: 18:30 Obstetrical Discharge Record Final Diagnosis Final Diagnosis: Term not delivered Other Final Diagnosis 36-year-old female at 37.1 weeks gestation admitted because of PIH at 37 weeks with gestational diabetes, transverse lie, and previous Per perinatology recommendation decision was made to proceed with repeat Unfortunately regardless of warning of possible seizures or maternal damage, demise, and/or and other complications of PIH she decided to sign herself out Patient is claiming she will be back on Saturday to have a repeat section Multiple warnings were given to her in regards to blurred vision or epigastric pain or headache and no ruptured membrane with a transverse lie to refer to hospital immediately in case it occurs We will try to contact patient on daily basis to assure her with me Complications Gestational Diabetes, Preg induced Hypertension Condition on Discharge Physical Assessment Last Vitals: See nurse's notes Voiding: Yes Bowel Movement: Yes Breast: Soft, non-tender, Filling Fundus: Other (Gravid) Abdomen and Incision: Soft and Calf Tenderness: No Patient Condition: Stable ANKUR GOTTLIEB MD Mar 06, 2017 18:36
== END 2017-03-06 19:15 | disposition left against medical advice (07) ==
LOC: OBT 18:25 → L-D 18:27 → INTOOBSV 20:57 → OBT 20:57 → OBG 03-06 00:02 → L-D 03-06 12:50
PROVIDERS: ADMIT Obstetrics & Gynecology; ATTEND Obstetrics & Gynecology
DX: O13.3 Gestational [pregnancy-induced] hypertension without significant proteinuria, third trimester (principal); O24.414 Gestational diabetes mellitus in pregnancy, insulin controlled; Z3A.37 37 weeks gestation of pregnancy
CPT/HCPCS: 36415; 76818; 80053; 80069; 80076; 81001; 82962; 83615; 83735; 84560; 85025; 85384; 85610; 85730; 86592; 86850; 86900; 86901; 87340; 96360; 96367; J1815; J3475; J7120; Z7500; Z7610; 99217; G0378; G0463

== ENCOUNTER 2017-03-09 10:26 | Inpatient (IN) | payer OTHER ==
[~2017-03-09] VITALS: Ht 149.9 cm; Wt 91.2 kg
[2017-03-09 10:49] VITALS: BP 139/95; PULSE 97; RESP 18
[2017-03-09 10:50] VITALS: Ht 149.9 cm; Wt 91.2 kg
[2017-03-09 12:25] LABS: BASOPHILS % 0.6 % (0.0-2.0); EOSINOPHILS % 0.3 % (0.0-7.0); HEMOGLOBIN 11.4 g/dl (12.0-16.0); LYMPHOCYTES # 2.2 10^3/ul (0.8-2.9); LYMPHOCYTES % 34.5 % (15.0-51.0); MEAN CORPUSCULAR HEMOGLOBIN 24.7 pg (29.0-33.0); MEAN CORPUSCULAR HGB CONC 30.8 g/dl (32.0-37.0); MEAN CORPUSCULAR VOLUME 80.1 fl (82.0-101.0); MEAN PLATELET VOLUME 11.6 fl (7.4-10.4); MONOCYTE # 0.4 10^3/ul (0.3-0.9); MONOCYTES % 6.3 % (0.0-11.0); NEUTROPHILS % 57.7 % (39.0-77.0); NUCLEATED RED BLOOD CELLS% 0.5 /100WBC (0.0-0.0); PLATELET COUNT 234 10^3/UL (140-415); RED BLOOD COUNT 4.62 10^6/ul (4.20-5.40); RED CELL DISTRIBUTION WIDTH 13.6 % (11.5-14.5); WHITE BLOOD COUNT 6.5 10^3/ul (4.8-10.8)
[2017-03-09] MEDS ORDERED: MISOPROSTOL 200 MCG TAB PR PRN ×2 (12:30→17:30)
[2017-03-09] MEDS ORDERED: CEFAZOLIN 2 GM/50 ML (PMX) 50 ML IV SCH (12:30)
[2017-03-09] MEDS ORDERED: OXYTOCIN 30 UNITS/LR 500 ML IV PRN ×2 (12:30→17:30)
[2017-03-09] MEDS ORDERED: OXYTOCIN 30 UNITS/LR 500 ML IV SCH (12:30)
[2017-03-09] MEDS ORDERED: METHYLERGONOVINE 0.2 MG INJ IM PRN ×2 (12:30→17:30)
[2017-03-09] MEDS ORDERED: CARBOPROST 250 MCG INJ IM PRN ×2 (12:30→17:30)
[2017-03-09 12:45] LABS: ADD UMIC YES; UR ASCORBIC ACID NEGATIVE (NEGATIVE); UR BACTERIA FEW /HPF (NONE SEEN); UR BILIRUBIN (Dip) NEGATIVE (NEGATIVE); UR BLOOD (Dip) 2+ mg/dL (NEGATIVE); UR CLARITY SLIGHTLY CLOUDY (CLEAR); UR COLOR YELLOW (YELLOW); UR GLUCOSE (Dip) NEGATIVE (NEGATIVE); UR KETONES (Dip) NEGATIVE (NEGATIVE); UR LEUKOCYTE ESTERASE (Dip) 3+ Leu/ul (NEGATIVE); UR NITRITE (Dip) NEGATIVE (NEGATIVE); UR RBC 3 /HPF (0-5); UR SPECIFIC GRAVITY (Dip) 1.015 (1.003-1.030); UR SQUAMOUS EPITHELIAL CELL FEW /HPF (FEW); UR TOTAL PROTEIN (Dip) NEGATIVE (NEGATIVE); UR UROBILINOGEN (Dip) NEGATIVE (NEGATIVE)
[2017-03-09] MEDS: LACTATED RINGER'S 1,000 ML IV SCH ×3 (12:45→17:16)
[2017-03-09 12:53] LABS: INR 0.88; PROTIME 11.9 Sec (12.2-14.2); PT RATIO 0.9
--- NOTE | 2017-03-09 12:53 | TRIAGE ---
OB Triage Datetime Report Generated by CPN: 03/09/2017 12:52 Datetime: 03/09/2017 12:47 Assessment Type: Admission Assessment Vaginal Bleeding: None Maternal Assessment Level of Consciousness: Fully Conscious DTR's/Clonus: DTRs 2+; No Clonus Headache: Denies Blurred Vision: No Respiratory Effort: Unlabored; Regular Rhythm; Equal Expansion Breath Sounds, Left: Clear and Equal Breath Sounds, Right: Clear and Equal Nausea/Vomiting: Denies RUQ Epigastric Pain: Denies Lower Extremities Edema: Bilateral Lower Extremities Degree: 1+ Upper Extremities Edema: None Degree: None Facial Edema: None Fall Risk Assessment History of Falling: (0) No Secondary Diagnosis: (0) No Ambulatory Aid: (0) Bedrest/Nurse Assist IV Therapy: (0) No Gait: (0) Normal/Bedrest/Immobile Mental Status: (0) Oriented to Own Ability Fall Score: 0 Fall Risk Score Definition: No Risk: No action required Labor Evaluation Frequency: 2-3 Duration (sec)2399: 60 Quality: Mild Pattern: Normal: <= 5 Contractions in 10 Minutes Resting Tone [place]: Relaxed Heart Rate FHR Baseline Rate: 155 Variability: Moderate 6-25 bpm Accelerations: 15X15 Decelerations: None Category: Category I Pain Assessment Pain Scale: 2 Pain Presence: Intermittent Pain Type: Contraction Pain Location: Abdomen Pain Goal: 2 Membrane Status: Intact Datetime: 03/09/2017 12:36 Stage of : Labor Headache: Denies Blurred Vision: No RUQ Epigastric Pain: Denies Facial Edema: None Labor Evaluation Frequency: occ Pattern: Normal: <= 5 Contractions in 10 Minutes Heart Rate FHR Baseline Rate: 150 Monitor Mode: External US FHR Baseline Changes: No Baseline Change Variability: Moderate 6-25 bpm Accelerations: 15X15 Decelerations: None Category: Category I Pain Presence: None/Denies Membrane Status: Intact Datetime: 03/09/2017 10:57 Vaginal Exam Dilatation (cms): 1.0 Effacement (%): 50 Station: -4 Exam By: Sun RN Datetime: 03/09/2017 10:51 Time of Arrival: 03/09/2017 10:20 EGA: 37.5 Arrived By: Ambulatory Arrived From: Home Chief Complaint: Informed in clinic yesterday to come to OB Triage for further evaluation of eleva brenna BPs Movement: Present Contractions: Denies/Absent Rupture of Membranes: Denies Vaginal Discharge: Denies Recent Sexual Intercouse: Denies Abdominal Trauma: Not Applicable Patient Complaints: Back Pain Time Provider Notified: 03/09/2017 11:25 Provider Notified: Reiche Initial Plan: NST Datetime: 03/09/2017 10:50 Assessment Type: Triage Maternal Assessment Level of Consciousness: Fully Conscious DTR's/Clonus: DTRs 2+; No Clonus Headache: Denies Blurred Vision: No Respiratory Effort: Unlabored; Regular Rhythm; Equal Expansion Breath Sounds, Left: Clear and Equal Breath Sounds, Right: Clear and Equal Nausea/Vomiting: Denies RUQ Epigastric Pain: Denies Lower Extremities Edema: Bilateral Lower Extremities Degree: 1+ Upper Extremities Edema: Bilateral Upper Extremities Degree: 1+ Facial Edema: None Fall Risk Assessment History of Falling: (0) No Secondary Diagnosis: (0) No Ambulatory Aid: (0) Bedrest/Nurse Assist IV Therapy: (0) No Gait: (0) Normal/Bedrest/Immobile Mental Status: (0) Oriented to Own Ability Fall Score: 0 Fall Risk Score Definition: No Risk: No action required Datetime: 03/06/2017 19:13 Bedside Blood Glucose: 117 (Annotations: 2h pp) Datetime: 03/06/2017 18:18 Stage of : Labor Maternal Assessment Level of Consciousness: Fully Conscious Headache: Denies Nausea/Vomiting: Denies RUQ Epigastric Pain: Denies Labor Evaluation Frequency: occas Monitor Mode: External Interventions: Side to Side Heart Rate FHR Baseline Rate: 135 Monitor Mode: External US FHR Baseline Changes: No Baseline Change Accelerations: None (Annotations: loss of contact) Decelerations: Variable Category: Category II Comments: loss of contact d/t pt eating sitting up Pain Assessment Pain Scale: 0 Pain Presence: None/Denies Vaginal Bleeding: None Datetime: 03/06/2017 17:17 Stage of : Labor Maternal Assessment Level of Consciousness: Fully Conscious DTR's/Clonus: DTRs 2+ Headache: Denies Nausea/Vomiting: Denies RUQ Epigastric Pain: Denies Labor Evaluation Frequency: occas Monitor Mode: External Heart Rate FHR Baseline Rate: 140 Monitor Mode: External US FHR Baseline Changes: No Baseline Change Accelerations: 15X15 Decelerations: Variable (Annotations: x1, [place] to 130 x1 min-80 sec) Category: Category I Pain Assessment Pain Scale: 0 Pain Presence: None/Denies Vaginal Bleeding: None Datetime: 03/06/2017 16:46 Comments: bpp 8/8 trev 21 Datetime: 03/06/2017 16:30 Stage of : Labor Datetime: 03/06/2017 16:00 Stage of : Labor Maternal Assessment Level of Consciousness: Fully Conscious DTR's/Clonus: DTRs 2+ Headache: Denies Nausea/Vomiting: Denies RUQ Epigastric Pain: Denies Temperature Route: Oral Labor Evaluation Frequency: occas Monitor Mode: External Heart Rate FHR Baseline Rate: 135 Monitor Mode: External US FHR Baseline Changes: No Baseline Change Accelerations: 15X15 Decelerations: None Category: Category I Pain Assessment Pain Scale: 0 Pain Presence: None/Denies Vaginal Bleeding: None Datetime: 03/06/2017 14:53 Stage of : Labor Maternal Assessment Level of Consciousness: Fully Conscious DTR's/Clonus: DTRs 2+ Headache: Denies Nausea/Vomiting: Denies RUQ Epigastric Pain: Denies Labor Evaluation Frequency: 0 Monitor Mode: External Interventions: Side to Side Heart Rate FHR Baseline Rate: 140 Monitor Mode: External US FHR Baseline Changes: No Baseline Change Variability: Minimal - Undetectable to <=5 bpm Accelerations: 15X15 Decelerations: Variable (Annotations: mild [place]) Category: Category II Pain Assessment Pain Scale: 0 Pain Presence: None/Denies Vaginal Bleeding: None Datetime: 03/06/2017 14:00 Stage of : Labor Maternal Assessment Level of Consciousness: Fully Conscious DTR's/Clonus: DTRs 2+ Headache: Denies Nausea/Vomiting: Denies RUQ Epigastric Pain: Denies Labor Evaluation Frequency: 0 Monitor Mode: External Heart Rate FHR Baseline Rate: 135 Monitor Mode: External US Variability: Moderate 6-25 bpm Accelerations: 15X15 Decelerations: None Category: Category I Pain Assessment Pain Scale: 0 Pain Presence: None/Denies Vaginal Bleeding: None Datetime: 03/06/2017 13:09 Stage of : Labor Maternal Assessment Level of Consciousness: Fully Conscious DTR's/Clonus: DTRs 2+ Headache: Denies Breath Sounds, Left: Clear and Equal Breath Sounds, Right: Clear and Equal Nausea/Vomiting: Denies RUQ Epigastric Pain: Denies Labor Evaluation Frequency: 0 Monitor Mode: External Heart Rate FHR Baseline Rate: 135 Monitor Mode: External US Variability: Moderate 6-25 bpm Accelerations: 10X10 Decelerations: None Category: Category I Pain Assessment Pain Scale: 0 Pain Presence: None/Denies Vaginal Bleeding: None Datetime: 03/06/2017 11:00 Stage of : Antepartum Maternal Assessment Level of Consciousness: Fully Conscious DTR's/Clonus: DTRs 2+ Headache: Denies Breath Sounds, Left: Clear and Equal Breath Sounds, Right: Clear and Equal Nausea/Vomiting: Denies RUQ Epigastric Pain: Denies Labor Evaluation Frequency: 0/hr Monitor Mode: External Heart Rate FHR Baseline Rate: 135 Monitor Mode: External US Variability: Moderate 6-25 bpm Accelerations: 10X10 Pain Presence: None/Denies Vaginal Bleeding: None Datetime: 03/06/2017 10:09 Stage of : Antepartum Maternal Assessment Level of Consciousness: Fully Conscious Headache: Denies Nausea/Vomiting: Denies RUQ Epigastric Pain: Denies Labor Evaluation Frequency: 0/hr Monitor Mode: External Heart Rate FHR Baseline Rate: 135 Monitor Mode: External US Variability: Moderate 6-25 bpm Accelerations: 10X10 Pain Presence: None/Denies Datetime: 03/06/2017 10:01 Pain Presence: None/Denies Datetime: 03/06/2017 09:15 Stage of : Antepartum Maternal Assessment Level of Consciousness: Fully Conscious Headache: Denies Nausea/Vomiting: Denies RUQ Epigastric Pain: Denies Labor Evaluation Frequency: 0/hr Monitor Mode: External Interventions: Side to Side Heart Rate FHR Baseline Rate: 135 Monitor Mode: External US Variability: Moderate 6-25 bpm Accelerations: 10X10 Decelerations: Variable Category: Category II Pain Presence: None/Denies Datetime: 03/06/2017 09:09 Bedside Blood Glucose: 117 Datetime: 03/06/2017 08:18 Heart Rate FHR Baseline Rate: 135 Variability: Moderate 6-25 bpm Accelerations: 10X10 Decelerations: None Datetime: 03/06/2017 08:15 Stage of : Antepartum Assessment Type: Ongoing Assessment Maternal Assessment Level of Consciousness: Fully Conscious DTR's/Clonus: DTRs 2+; No Clonus Headache: Denies Blurred Vision: No Respiratory Effort: Unlabored; Regular Rhythm; Equal Expansion Respiratory Effort: Unlabored Breath Sounds, Left: Clear and Equal Breath Sounds, Left: Clear and Equal Breath Sounds, Right: Clear and Equal Breath Sounds, Right: Clear and Equal Nausea/Vomiting: Denies RUQ Epigastric Pain: Denies RUQ Epigastric Pain: Denies Lower Extremities Edema: None Upper Extremities Edema: None Facial Edema: None Facial Edema: None Fall Risk Assessment History of Falling: (0) No Secondary Diagnosis: (0) No Ambulatory Aid: (0) Bedrest/Nurse Assist IV Therapy: (20) Yes Gait: (0) Normal/Bedrest/Immobile Mental Status: (0) Oriented to Own Ability Fall Score: 20 Fall Risk Score Definition: No Risk: No action required Pain Presence: None/Denies Datetime: 03/06/2017 00:21 EGA: 37.2 Datetime: 03/06/2017 00:16 Fall Score: 20 Fall Risk Score Definition: No Risk: No action required Datetime: 03/05/2017 21:01 Stage of : OB Triage Datetime: 03/05/2017 20:57 Stage of : OB Triage Datetime: 03/05/2017 19:11 Fall Score: 0 Fall Risk Score Definition: No Risk: No action required Datetime: 03/05/2017 18:50 Fall Score: 0 Fall Risk Score Definition: No Risk: No action required Datetime: 03/05/2017 18:48 EGA: 37.1 Datetime: 03/01/2017 16:43 Fall Score: 0 Fall Risk Score Definition: No Risk: No action required Datetime: 03/01/2017 16:00 EGA: 36.4 Datetime: 02/27/2017 16:48 EGA: 36.2 Datetime: 02/20/2017 22:00 EGA: 35.2 Datetime: 02/19/2017 15:07 EGA: 35.1 Datetime: 02/19/2017 15:01 Fall Score: 0 Fall Risk Score Definition: No Risk: No action required Datetime: 01/09/2017 23:04 EGA: 29.2
[2017-03-09 12:54] LABS: PARTIAL THROMBOPLASTIN TIME 24.9 Sec (25.0-35.0)
[2017-03-09 12:58] LABS: ALBUMIN/GLOBULIN RATIO 0.81; BILIRUBIN,INDIRECT 0.1 mg/dl (0-1.1); BILIRUBIN,TOTAL 0.1 mg/dl (0.2-1.3); CALCIUM 8.6 mg/dl (8.4-10.2); CREATININE 0.58 mg/dl (0.44-1.00); POTASSIUM 4.2 mmol/L (3.5-5.1); TOTAL PROTEIN 6.7 g/dl (6.1-8.1); URIC ACID 4.2 mg/dl (3.1-7.9)
[2017-03-09] MEDS ORDERED: AMPICILLIN 2 GM/NS (PMX) 100 ML ONE (13:39)
[2017-03-09] MEDS ORDERED: AMPICILLIN 2 GM/NS (PMX) 100 ML IVPB ONE (13:40)
[2017-03-09] MEDS ORDERED: OXYTOCIN 30 UNITS/LR 500 ML IV ONE (14:41)
[2017-03-09] MEDS ORDERED: ONDANSETRON 4 MG INJ ONE (14:41)
[2017-03-09] MEDS ORDERED: OXYTOCIN 10 UNIT INJ ONE (14:41)
[2017-03-09] MEDS ORDERED: morphine SULFATE/PF (10 MG/10 ML) INJ ONE (14:41)
[2017-03-09] MEDS ORDERED: EPHEDrine SULFATE 50 MG/5 ML SYG ONE (14:41)
[2017-03-09] MEDS ORDERED: METOCLOPRAMIDE 10 MG INJ ONE (14:41)
--- NOTE | 2017-03-09 15:56 | HP ---
Date/Time of Note Date/Time of Note DATE: 03/09/17 TIME: 15:50 OB - History Hx of Present Free Text/Dictation 36-year-old female 3 para 2 at 37+ weeks was supposed to have a C- section on March 05 of March [id number] readmitted for PIH and repeat section Baby has history of a scalp edema and mild myocardial hypertrophy Mother is gestational diabetic and is using regular insulin and NPH insulin on a minimal amount; apparently has poorly controlled diabetes Last Menstrual Period: Jun 19, 2016 Estimated Due Date: Mar 25, 2017 : 3 Para: 2 Care: Good Care Ultrasounds: Abnormal US findings Abnormal Ultrasound Findings: Mild to myocardial hypertrophy on a vague Obstetrical Complications: Gestational Diabetes, Gestational Hypertension, Other (AMA) Medical Complications: Other (Previous 1) Past Family/Social History * Past Medical, Surgical, Family and Obstetric Histories reviewed from chart. Blood Type: O+ Rubella: immune RPR/VDRL: Negative GBS Status: Positive HBsAG: Negative OB Admission Exam Vital Signs Vital Signs Vital Signs Date Time Temp Pulse Resp B/P Pulse Ox O2 Delivery O2 Flow Rate FiO2 03/09/17 10:49 98.2 97 18 139/95 Room Air Physical Exam HEENT: WNL Heart: Rhythm Normal Lungs: Clear, Equal Abdomen: WNL Extremities: Normal Reflexes: Normal Cervical Dilatation: Fingertip Effacement: 0% Station: -3 Membranes: Intact Heart Rate: 140's Accelerations: Accelerations Present Decelerations: No Decelerations Varibility: Moderate Contractions on Admission: None Last 72 hours Lab Results CBC & BMP 03/09/17 12:00 Liver Function Test 03/09/17 12:00 Alanine Aminotransferase (ALT/SGPT) 26 Albumin 3.0 L Alkaline Phosphatase 185 H Aspartate Amino Transf (AST/SGOT) 21 Direct Bilirubin 0.00 Total Protein 6.7 OB Assessment/Plan Reason for admission: section Other Assessment: 37 weeks gestation Previously signed AGAINST MEDICAL ADVICE Readmitted for repeat section -induced hypertension Past first-line Gestational diabetes Advanced age Other plan: Repeat section ANKUR GOTTLIEB MD Mar 09, 2017 15:56
--- NOTE | 2017-03-09 16:10 | OPR ---
Operative Report Planned Procedure Procedure date Mar 09, 2017 Procedure(s) Repeat delivery Performed by see signature line Assisting provider: MICHELLE DE LOS SANTOS MD Anesthesiologist: MARCELA MENDIOLA MD Pre-procedure diagnosis 37 weeks gestation Previous section 1 Gestational diabetes Transverse lie -induced hypertension Anesthesia Type: spinal Procedure Description Under satisfactory anaesthesia a Pfannenstiel incision was made two fingerbreadth above and parallel to the symphysis of pubis around the previous scar and previous scar was removed Incision was extended laterally to the border of the Recti muscles on either sides. Incision was carried down with sharp and blunt dissection until fascia was reached. Anterior Recti muscle fascia was incised in mid portion and incision extended laterally to the border of skin incision. Fascia was mobilized from muscle superiorly and Recti muscles were from midline using sharp and blunt dissection. Peritoneum was visualized; Avoiding bowel and bladder it was incised . Incision was extended superiorly and inferiorly. Bladder blade was placed. Posterior peritoneum covering the lower segment of the uterus and lower segment of the uterus were incised.Low transverse uteine incision was made on lower segment of the uterus. Incision extended laterally to the border of Round Lig. on either sides and baby was delivered from OT. position . Amniotic fluid appeared clear. Cord blood was obtained and cord had 3 vessels . Placenta was delivered spontaneously and appeared intact and complete. Intrauterine cavity was rubbed with a laparotomy sponge. Uterine incision was closed in 2 layers using running stitches of No1 Monocryl. Hemostasis appeared secure. Ovaries and Fallopian tubes were within normal limits. Announcing needle, lap sponge and instrument count to be correct abdomen was closed in layers as follows: Peritoneum and Recti muscles with running stitches of 20 Vicryl. Fascia with running stitch of No 1 PDS. Subcutaneous tissue with running stitches of 20 Chromic and skin was closed using tessie. Patient tolerated the procedure well and was transferred to [facility] in good condition. Post-Procedure Post-procedure diagnosis Status post repeat section Findings: Live Baby in oblique position vertex was guided toward the incision Normal right and left fallopian tubes Estimated blood loss: other (500 cc) Specimen(s): yes (see below) Specimen(s) description Placenta Grafts/Implants: no Complication(s): no Pt Condition post procedure: stable Disposition: PACU Physician Certification I, the undersigned physician, hereby certify that I have discussed the procedure described in this consent form with this patient (or the patient's legal motor vehicle representative), including: * The risk and benefits of the procedure; * Any adverse reactions that may reasonably be expected to occur; * Any alternative efficacious methods of treatment which may be medically viable ; * The potential problems that may occur during recuperation; * Potential for blood transfusion and associated risks/benefits; and * Any research or economic interest I may have regarding this treatment. I further certify that the patient/legally responsible person was encouraged to ask question and that all questions were answered. ANKUR GOTTLIEB MD Mar 09, 2017 16:10
[2017-03-09] MEDS ORDERED: NALOXONE (0.4 MG/ML) INJ IV PRN (16:30)
[2017-03-09] MEDS ORDERED: morphine 2 MG INJ IV PRN (16:30)
[2017-03-09] MEDS ORDERED: EPHEDrine SULFATE 50 MG/5 ML SYG IV PRN (16:30)
[2017-03-09] MEDS ORDERED: morphine SULFATE/PF (10 MG/10 ML) INJ SPINAL ONE (16:30)
[2017-03-09] MEDS ORDERED: morphine 4 MG/ML VIAL IV PRN (16:30)
[2017-03-09] MEDS ORDERED: ONDANSETRON 4 MG INJ IV PRN (16:30)
[2017-03-09] MEDS: DIPHENHYDRAMINE 50 MG INJ IV PRN ×2 (17:12→23:59)
[2017-03-09] MEDS ORDERED: GLUCOSE GEL 15 GRAM TUBE PO PRN ×2 (17:30)
[2017-03-09] MEDS ORDERED: DEXTROSE 50% 50 ML SYRINGE IV PRN ×2 (17:30)
[2017-03-09] MEDS ORDERED: GLUCOSE GEL 15 GRAM TUBE BUCCAL PRN (17:30)
[2017-03-09] MEDS ORDERED: GLUCAGON 1 MG INJ IM PRN (17:30)
[2017-03-09] MEDS ORDERED: LANOLIN 7 GM TUBE TOP PRN (17:30)
[2017-03-09] MEDS ORDERED: NA PHOSPHATE/BIPHOS 133 ML ENEMA PR PRN (17:30)
[2017-03-09] MEDS ORDERED: OXYCODONE/ACETAMINOPHEN (5/325) TAB PO PRN (17:30)
[2017-03-09] MEDS: CEFAZOLIN 2 GM/50 ML (PMX) 50 ML IV SCH ×2 (17:30→22:08)
[2017-03-09] MEDS: CLINDAMYCIN 300 MG CAP PO SCH (18:00)
[2017-03-09 18:10] VITALS: BP 139/76; PULSE 63; RESP 19
[2017-03-09 18:40] VITALS: BP 139/79; PULSE 77; RESP 19
[2017-03-09] MEDS: ACCU-CHEK XX SCH (20:05)
[2017-03-09] MEDS: KETOROLAC 30 MG INJ IV PRN (20:15)
[2017-03-09 20:30] VITALS: BP 142/73; PULSE 65; RESP 20
[2017-03-09] MEDS: metFORMIN (XR) 500 MG TAB PO SCH (21:27)
[2017-03-09] MEDS: SENNA/DOCUSATE NA (8.6MG/50MG) TAB PO SCH (21:27)
[2017-03-10] MEDS: CLINDAMYCIN 300 MG CAP PO SCH ×4 (00:32→17:56)
[2017-03-10] MEDS: LACTATED RINGER'S 1,000 ML IV SCH ×3 (01:17→17:16)
[2017-03-10 01:23] VITALS: BP 133/83; PULSE 73; RESP 18
[2017-03-10 03:46] VITALS: BP 129/76; PULSE 81; RESP 18
[2017-03-10] MEDS: CEFAZOLIN 2 GM/50 ML (PMX) 50 ML IV SCH ×2 (06:00→14:36)
[2017-03-10] MEDS: KETOROLAC 30 MG INJ IV PRN ×2 (06:07→14:40)
[2017-03-10] MEDS: DIPHENHYDRAMINE 50 MG INJ IV PRN (06:23)
[2017-03-10 06:59] LABS: BASOPHILS % 0.3 % (0.0-2.0); EOSINOPHILS # 0.1 10^3/ul (0.0-0.5); EOSINOPHILS % 0.5 % (0.0-7.0); HEMATOCRIT 36.3 % (37.0-47.0); HEMOGLOBIN 11.3 g/dl (12.0-16.0); LYMPHOCYTES # 1.9 10^3/ul (0.8-2.9); LYMPHOCYTES % 21.3 % (15.0-51.0); MEAN CORPUSCULAR HEMOGLOBIN 24.9 pg (29.0-33.0); MEAN CORPUSCULAR HGB CONC 31.1 g/dl (32.0-37.0); MEAN CORPUSCULAR VOLUME 80.1 fl (82.0-101.0); MEAN PLATELET VOLUME 11.4 fl (7.4-10.4); MONOCYTE # 0.7 10^3/ul (0.3-0.9); MONOCYTES % 7.1 % (0.0-11.0); NEUTROPHILS % 70.3 % (39.0-77.0); PLATELET COUNT 203 10^3/UL (140-415); RED BLOOD COUNT 4.53 10^6/ul (4.20-5.40); RED CELL DISTRIBUTION WIDTH 13.7 % (11.5-14.5); WHITE BLOOD COUNT 9.1 10^3/ul (4.8-10.8)
[2017-03-10] MEDS: ACCU-CHEK XX SCH ×4 (07:30→21:00)
[2017-03-10 08:00] VITALS: BP 134/79; PULSE 70; RESP 18
[2017-03-10] MEDS: ENOXAPARIN 40 MG/0.4 ML SYG SC SCH (09:14)
[2017-03-10] MEDS: metFORMIN (XR) 500 MG TAB PO SCH ×2 (09:15→21:00)
[2017-03-10] MEDS: SENNA/DOCUSATE NA (8.6MG/50MG) TAB PO SCH ×2 (09:15→21:00)
[2017-03-10] MEDS ORDERED: BISACODYL 10 MG SUPP PR ONE (09:30)
--- NOTE | 2017-03-10 12:01 | PN ---
Date/Time of Note Date/Time of Note DATE: 03/10/17 TIME: 12:00 Assessment/Plan VTE Prophylaxis VTE Prophylaxis Intervention: ambulation Lines/Catheters IV Catheter Type (from Nrsg): Peripheral IV Assessment/Plan Assessment/Plan Status post postop day 1 We will advance diet and ambulate Her vital signs Her blood sugar Subjective 24 Hr Interval Summary No bowel movement Passing flatus Constitutional: BM, ambulates, flatus, improved, no complaints, urine output Pain Control: well controlled Exam/Review of Systems Vital Signs Vitals Vital Signs Date Time Temp Pulse Resp B/P Pulse Ox O2 Delivery O2 Flow Rate FiO2 03/10/17 08:43 94 21 03/10/17 08:00 97.7 70 18 134/79 Room Air Intake and Output 03/09/17 03/09/17 03/10/17 15:00 23:00 07:00 Intake Total 1800 ml 2125 ml Output Total 250 ml 1200 ml 900 ml Balance 1550 ml 925 ml -900 ml Exam Free Text/Dictation Abdomen is soft, bowel sounds present, Abdomen is not distended Incision is covered Constitutional: alert, oriented, well developed Psych: nl mood/affect, no complaints Head: atraumatic, normocephalic Eyes: EOMI, nl conjunctiva, nl lids, nl sclera ENMT: mucosa pink and moist, nl external ears & nose, nl lips & teeth, nl nasal mucosa & septum Neck: non-tender, supple Respiratory: clear to auscultation, normal air movement Cardiovascular: nl pulses, regular rate and rhythm Gastrointestinal: nl liver, spleen, non-tender, soft Musculoskeletal: nl extremities to inspection, nl gait and stance Extremities: normal pulses Neurological: [employer] TECH[employer]ICAL ARCHITECT II-XII intact, nl mental status, nl speech, nl strength Skin: nl turgor, rash or lesions Lymph: nl lymph nodes Results Result Diagram: 03/10/17 0643 03/09/17 1200 ANKUR GOTTLIEB MD Mar 10, 2017 12:01
[2017-03-10 12:20] VITALS: BP 132/74; PULSE 75; RESP 18
[2017-03-10] MEDS: IBUPROFEN 800 MG TAB PO SCH ×2 (14:00→22:06)
[2017-03-10 16:00] VITALS: BP 129/75; PULSE 77; RESP 20
[2017-03-10 20:00] VITALS: BP 131/83; PULSE 84; RESP 18
[2017-03-11] MEDS: CLINDAMYCIN 300 MG CAP PO SCH ×4 (00:01→18:44)
[2017-03-11 04:00] VITALS: BP 130/74; PULSE 71; RESP 18
[2017-03-11] MEDS ORDERED: BISACODYL 10 MG SUPP PR SCH (05:16)
[2017-03-11] MEDS: IBUPROFEN 800 MG TAB PO SCH ×3 (05:33→22:30)
[2017-03-11] MEDS: ACCU-CHEK XX SCH ×4 (07:30→20:05)
[2017-03-11 08:15] VITALS: BP 140/85; PULSE 76; RESP 18
[2017-03-11] MEDS: SENNA/DOCUSATE NA (8.6MG/50MG) TAB PO SCH ×2 (09:13→20:46)
[2017-03-11] MEDS: metFORMIN (XR) 500 MG TAB PO SCH ×2 (09:13→20:46)
[2017-03-11] MEDS: ENOXAPARIN 40 MG/0.4 ML SYG SC SCH (09:23)
[2017-03-11] MEDS: HYDROCODONE/APAP (5/325) TAB PO PRN (11:46)
[2017-03-11 12:10] VITALS: BP 130/89
[2017-03-11 15:30] VITALS: BP 122/79; PULSE 96
--- NOTE | 2017-03-11 19:51 | DS ---
Date/Time of Note Date/Time of Note Home next day Continue diabetic counseling in regards to patient's high blood sugar DATE: 03/11/17 TIME: 19:49 Obstetrical Discharge Record Final Diagnosis Final Diagnosis: Term delivered Other Final Diagnosis Status post repeat Section Section: Repeat Complications Gestational Diabetes, Preg induced Hypertension Condition on Discharge Physical Assessment Last Vitals: See nurse's notes Voiding: Yes Bowel Movement: Yes Breast: Soft, non-tender, Filling Fundus: Firm Abdomen and Incision: Abdomen is soft bowel sounds are present and abdomen is not distended Incision is healing well, without induration and or erythema Calf Tenderness: No Patient Condition: Good ANKUR GOTTLIEB MD Mar 11, 2017 19:51
--- NOTE | 2017-03-11 19:53 | DS ---
Date/Time of Note Date/Time of Note Home following day if stable DATE: 03/11/17 TIME: 19:51 Discharge Summary Admission/Discharge Info Admit Date/Time Mar 09, 2017 at 12:10 Discharge Date/Time March 12, 2017 Discharge Diagnosis Diabetes Status post repeat Gestational hypertension Patient Condition: Good Procedures Repeat Hx of Present Illness 36-year-old female return to hospital after signing herself out few days prior to admission and had repeat section Patient is a known diabetic Hospital Course Uncomplicated Home Meds Reported Medications Insulin Human Nph (Novolin-N) 100 Units/Ml Susp, 10 UNITS SQ QHS 02/19/17 Insulin Human Regular (Novolin-R U-100) 100 Unit/Ml Soln, 15 UNITS SC BEDTIME, EA 02/19/17 Insulin Human Regular (Novolin-R U-100) 100 Unit/Ml Soln, 6 UNITS SC AC BREAKFAST, EA 02/19/17 Insulin Human Nph (Novolin-N) 100 Units/Ml Susp, 8 UNIT SQ AC BREAKFAST 02/19/17 Multivit/Min/Fol Ac/Iron/Pren* ( S*) 1 Tab Tab, 1 TAB PO DAILY, TAB 02/19/17 Follow-up Plan 1 week in clinic for incision check Continue taking her Metformin and follow-up with the dietitian and primary care for control of diabetes Primary Care Provider Not On Staff Doctor Time spent on discharge: > 30 minutes Pending Labs Laboratory Tests Test 03/10/17 20:54 03/11/17 08:25 03/11/17 11:49 03/11/17 15:47 Bedside Glucose 95mg/dL (70-220) 106mg/dL (70-220) 155mg/dL (70-220) 177mg/dL (70-220) ANKUR GOTTLIEB MD Mar 11, 2017 19:53
--- NOTE | 2017-03-11 19:55 | PD.PPDC ---
[employer] Discharge Instruction Provider Information Physician Information 36-year-old female had repeat at 37 weeks because of poorly controlled diabetes and gestational hypertension Diagnosis Final Diagnosis: Status post Condition Patient Condition: Good Diet Diet: Special Diet Special Diet: 1800-calorie ADA diet Diet is going to be modified by primary care and dietitian later on Activity/Restrictions Activity: May Shower Restrictions: No Exercising No Lifting Nothing in the Vagina Return to Work or School: May 13, 2017 Wound/Drain Care Instructions Wound/Drain Care Instructions: Keep clean and dry Follow-up Follow-up with Physician: 1, Week/Weeks (In clinic for incision check) Return to clinic for ORGAN FIXER Instructions: Fever greater than 101 Chills OB Instructions: Breast Tenderness Depression Blurried Vision Headache Comment: Pelvic rest on no hard activity for 2 months Surgical Instructions: Incisional Drainage Incisional Redness ANKUR GOTTLIEB MD Mar 11, 2017 19:55
[2017-03-11] MEDS ORDERED: IBUP800T25 PO (19:57)
[2017-03-11] MEDS ORDERED: METF500T3 PO (19:57)
[2017-03-11 20:30] VITALS: BP 132/85; PULSE 94; RESP 18
[2017-03-12] MEDS: CLINDAMYCIN 300 MG CAP PO SCH ×4 (00:01→17:43)
[2017-03-12 04:30] VITALS: BP 117/80; PULSE 72; RESP 18
[2017-03-12] MEDS: IBUPROFEN 800 MG TAB PO SCH ×2 (05:39→14:34)
[2017-03-12] MEDS: ACCU-CHEK XX SCH ×3 (07:30→13:50)
[2017-03-12 07:52] VITALS: BP 139/93; PULSE 76; RESP 18
[2017-03-12] MEDS: metFORMIN (XR) 500 MG TAB PO SCH (08:49)
[2017-03-12] MEDS: SENNA/DOCUSATE NA (8.6MG/50MG) TAB PO SCH (08:49)
[2017-03-12] MEDS: ENOXAPARIN 40 MG/0.4 ML SYG SC SCH (08:54)
[2017-03-12] MEDS ORDERED: MEASLES,MUMPS,RUBELLA VACCINE INJ SC* ONE (09:00)
[2017-03-12] MEDS ORDERED: DIPHTH/TET/ACEL PERTUSS (ADULT) 0.5 ML VIAL IM* ONE (09:00)
[2017-03-12] MEDS: HYDROCODONE/APAP (5/325) TAB PO PRN (11:57)
[2017-03-12 16:00] VITALS: BP 135/91; PULSE 82; RESP 17
== END 2017-03-12 19:00 | disposition home or self-care (01) | DRG 765 ==
LOC: OBT 10:26 → L-D 10:27 → OBT 12:10 → L-D 14:31 → PP1 18:16
PROVIDERS: ADMIT Obstetrics & Gynecology; ATTEND Obstetrics & Gynecology
PROC: 4A1HX4Z Monitoring of Products of Conception, Cardiac Electrical Activity, External Approach (ICD-10-PCS; 2017-03-09)
PROC: 10D00Z1 Extraction of Products of Conception, Low, Open Approach (ICD-10-PCS; principal; 2017-03-09 15:00)
PROC: 3E0234Z Introduction of Serum, Toxoid and Vaccine into Muscle, Percutaneous Approach (ICD-10-PCS; 2017-03-12)
DX: O34.211 Maternal care for low transverse scar from previous cesarean delivery (principal); Z68.41 Body mass index [BMI] 40.0-44.9, adult; O24.424 Gestational diabetes mellitus in childbirth, insulin controlled; O32.2XX0 Maternal care for transverse and oblique lie, not applicable or unspecified; Z37.0 Single live birth; Z3A.37 37 weeks gestation of pregnancy; O13.4 Gestational [pregnancy-induced] hypertension without significant proteinuria, complicating childbirth; O99.214 Obesity complicating childbirth; E66.01 Morbid (severe) obesity due to excess calories; Z79.4 Long term (current) use of insulin; Z23 Encounter for immunization
CPT/HCPCS: 36415; 80053; 81001; 82962; 84560; 85025; 85610; 85730; 86592; 86850; 86900; 86901; 86920; 87340; 88307; 90715; 94760; 99464; G0463; J0290; J0690; J1200; J1650; J1885; J2274; J2405; J2590; J2765; J7120

== ENCOUNTER 2018-10-24 11:48 | Outpatient (CLI) | payer OTHER ==
[~2018-10-24] VITALS: Ht 149.9 cm; Wt 86.8 kg
[~2018-10-24 11:48] MED LIST changes: +IBUP-1544 PO; +METF500T3 PO; -NPH SQ; -SS SC
[2018-10-24 11:51] VITALS: Ht 149.9 cm; Wt 86.8 kg
[2018-10-24 11:52] VITALS: BP 138/77; PULSE 90; RESP 20
[2018-10-24] MEDS ORDERED: NPH SQ (12:18)
[2018-10-24] MEDS ORDERED: SS SC ×2 (12:18)
[2018-10-24] MEDS ORDERED: NPH,100V SQ (12:19)
[2018-10-24] MEDS ORDERED: LISI40TA3 PO (12:20)
--- NOTE | 2018-10-24 15:25 | PN ---
Triage Information Date/Time 10/24/2018 Reason for visit: Sent in from [facility] for rule out -induced hypertension and nonreactive heart tones Weeks of Gestation 35+ weeks /Para 4 para 3 Diabetes: none, pre-gestational Hypertention: essential (On labetalol 200 p.o. twice daily) Additional information Patient denies headache blurred vision or epigastric pain Objective Vital Signs Date Temp Pulse Resp B/P (MAP) Pulse Ox O2 O2 Flow FiO2 Time Delivery Rate 10/24/18 99.0 90 20 138/77 Room Air 11:52 (97) Heart Rate: 140's Heart Rate Comments Reactive Contractions: None Results/Medications Result Diagram: 10/24/18 1409 10/24/18 1410 Results 24 hrs Laboratory Tests Test 10/24/18 13:00 10/24/18 14:09 10/24/18 14:10 Urine Color YELLOW Urine Clarity CLOUDY A Urine pH 7.0 Urine Specific [place] 1.008 Urine Ketones NEGATIVE Urine Nitrite NEGATIVE Urine Bilirubin NEGATIVE Urine Urobilinogen NEGATIVE Urine Leukocyte Esterase 3+ H Urine Microscopic RBC 6 H Urine Microscopic WBC 11 H Urine Squamous Epithelial Cells MANY A Urine Amorphous Crystals FEW A Urine Bacteria FEW A Urine Hemoglobin 1+ H Urine Glucose 2+ H Urine Total Protein NEGATIVE White Blood Count 8.1 Red Blood Count 4.36 Hemoglobin 12.0 Hematocrit 36.5 L Mean Corpuscular Volume 83.7 Mean Corpuscular Hemoglobin 27.5 L Mean Corpuscular Hemoglobin Concent 32.9 Red Cell Distribution Width 13.1 Platelet Count 222 Mean Platelet Volume 12.0 H Immature Granulocytes % 0.400 Neutrophils % 69.7 Lymphocytes % 22.1 Monocytes % 6.4 Eosinophils % 0.9 Basophils % 0.5 Nucleated Red Blood Cells % 0.0 Immature Granulocytes # 0.030 Neutrophils # 5.7 Lymphocytes # 1.8 Monocytes # 0.5 Eosinophils # 0.1 Basophils # 0.0 Nucleated Red Blood Cells # 0.0 Prothrombin Time 12.0 Prothrombin Time Ratio 0.9 INR International Normalized Ratio 0.88 Activated Partial Thromboplast Time 24.8 Sodium Level 133 L Potassium Level 3.7 Chloride Level 108 Carbon Dioxide Level 18 L Anion Gap 7 Blood Urea Nitrogen 12 Creatinine 0.40 L Est Glomerular Filtrat Rate mL/min > 60 Glucose Level 178 Uric Acid 3.6 Calcium Level 9.1 Total Bilirubin 0.1 L Direct Bilirubin 0.00 Indirect Bilirubin 0.1 Aspartate Amino Transf (AST/SGOT) 16 Alanine Aminotransferase (ALT/SGPT) 8 L Alkaline Phosphatase 117 Total Protein 6.7 Albumin 3.0 L Globulin 3.70 H Albumin/Globulin Ratio 0.81 Imaging Results Normal biophysical profile. Disposition: Discharge Assessment/Plan -induced hypertension was ruled out and patient's blood pressure became normal heart tones appear reactive We will follow patient by biweekly antepartum testing ANKUR GOTTLIEB MD Oct 24, 2018 15:25
--- NOTE | 2018-10-24 15:53 | TRIAGE ---
OB Triage Datetime Report Generated by CPN: 10/24/2018 15:52 Datetime: 10/24/2018 15:26 Labor Evaluation Frequency: X3 Monitor Mode: External Duration (sec)2399: 60-90 Quality: Mild Pattern: Normal: <= 5 Contractions in 10 Minutes Resting Tone [place]: Relaxed Heart Rate FHR Baseline Rate: 140 Monitor Mode: External US FHR Baseline Changes: No Baseline Change Variability: Moderate 6-25 bpm Accelerations: 15X15 Decelerations: None Category: Category I Pain Assessment Pain Scale: 0 Pain Presence: None/Denies Pain Type: N/A Pain Goal: 0 Datetime: 10/24/2018 14:29 Labor Evaluation Frequency: X2 Monitor Mode: External Duration (sec)2399: 60-100 Quality: Mild Pattern: Normal: <= 5 Contractions in 10 Minutes Resting Tone [place]: Relaxed Heart Rate FHR Baseline Rate: 140 Monitor Mode: External US FHR Baseline Changes: No Baseline Change Variability: Moderate 6-25 bpm Accelerations: 15X15 Decelerations: None Category: Category I Pain Assessment Pain Scale: 0 Pain Presence: None/Denies Pain Type: N/A Pain Goal: 0 Datetime: 10/24/2018 13:50 Labor Evaluation Frequency: X2 Monitor Mode: External Duration (sec)2399: 60 Quality: Mild Pattern: Normal: <= 5 Contractions in 10 Minutes Resting Tone [place]: Relaxed Heart Rate FHR Baseline Rate: 130 Monitor Mode: External US FHR Baseline Changes: No Baseline Change Variability: Moderate 6-25 bpm Accelerations: 15X15 Decelerations: None Category: Category I Pain Assessment Pain Scale: 0 Pain Presence: None/Denies Pain Type: N/A Pain Goal: 0 Vaginal Exam Membrane Status: Intact Datetime: 10/24/2018 13:18 Pain Assessment Pain Scale: 0 Pain Presence: None/Denies Pain Type: N/A Pain Goal: 0 Datetime: 10/24/2018 13:00 Labor Evaluation Frequency: X4 Monitor Mode: External Duration (sec)2399: 40-60 Quality: Mild Pattern: Normal: <= 5 Contractions in 10 Minutes Resting Tone [place]: Relaxed Heart Rate FHR Baseline Rate: 140 Monitor Mode: External US FHR Baseline Changes: No Baseline Change Variability: Moderate 6-25 bpm Accelerations: 15X15 Decelerations: None Category: Category I Pain Assessment Pain Scale: 0 Pain Presence: None/Denies Pain Type: N/A Pain Goal: 0 Datetime: 10/24/2018 12:30 Labor Evaluation Frequency: X1 Monitor Mode: External Duration (sec)2399: 40 Quality: Mild Pattern: Normal: <= 5 Contractions in 10 Minutes Resting Tone [place]: Relaxed Heart Rate FHR Baseline Rate: 150 Monitor Mode: External US FHR Baseline Changes: No Baseline Change Variability: Moderate 6-25 bpm Accelerations: 10X10 Decelerations: None Category: Category I Pain Assessment Pain Scale: 0 Pain Presence: None/Denies Pain Type: N/A Pain Goal: 0 Datetime: 10/24/2018 12:00 Labor Evaluation Frequency: 0 Monitor Mode: External Heart Rate FHR Baseline Rate: 150 Monitor Mode: External US FHR Baseline Changes: No Baseline Change Variability: Moderate 6-25 bpm Accelerations: 15X15 Decelerations: None Category: Category I Pain Assessment Pain Scale: 0 Pain Presence: None/Denies Pain Type: N/A Pain Goal: 0 Datetime: 10/24/2018 11:38 Stage of : OB Triage Assessment Type: Triage Maternal Assessment Level of Consciousness: Fully Conscious DTR's/Clonus: DTRs 2+; No Clonus Headache: Denies Blurred Vision: No Respiratory Effort: Unlabored; Regular Rhythm; Equal Expansion Nausea/Vomiting: Denies RUQ Epigastric Pain: Denies Lower Extremities Edema: None Degree: None Upper Extremities Edema: None Degree: None Facial Edema: None Fall Risk Assessment History of Falling: (0) No Secondary Diagnosis: (0) No Ambulatory Aid: (0) Bedrest/Nurse Assist IV Therapy: (0) No Gait: (0) Normal/Bedrest/Immobile Mental Status: (0) Oriented to Own Ability Fall Score: 0 Fall Risk Score Definition: No Risk: No action required Datetime: 10/24/2018 10:21 Time of Arrival: 10/24/2018 11:27 EGA: 35.1 Arrived By: Ambulatory Arrived From: Office Chief Complaint: SENT FROM [facility] Movement: Present Contractions: Denies/Absent Rupture of Membranes: Denies Vaginal Bleeding: None Vaginal Discharge: Denies Recent Sexual Intercouse: Denies Abdominal Trauma: Not Applicable Patient Complaints: Other Time Provider Notified: 10/24/2018 13:58 Provider Notified: DR. MARIE Initial Plan: AARTI FELDMAN
== END 2018-10-24 15:41 | disposition home or self-care (01) ==
LOC: L-D 11:48 → OBT 11:48
PROVIDERS: ATTEND Obstetrics & Gynecology
DX: O16.3 Unspecified maternal hypertension, third trimester (principal); O09.523 Supervision of elderly multigravida, third trimester; Z3A.35 35 weeks gestation of pregnancy
CPT/HCPCS: 76818; 80053; 81001; 84560; 85025; 85610; 85730; G0463

== ENCOUNTER 2018-10-28 18:42 | Inpatient (IN) | payer OTHER ==
[~2018-10-28] VITALS: Ht 149.9 cm; Wt 88.8 kg
[~2018-10-28 18:42] MED LIST changes: +LISI40TA3 PO; -METF500T3 PO; +NPH SQ; +NPH,100V SQ; +SS SC
[2018-10-28 19:00] VITALS: Ht 149.9 cm; Wt 88.8 kg
--- NOTE | 2018-10-28 23:49 | HP ---
Date/Time of Note Date/Time of Note DATE: 10/28/18 TIME: 23:46 OB - History Hx of Present Chief Complaint: Referred from [facility] clinic Estimated Due Date: November 27, 2018 : 4 Para: 3 Spontaneous : 0 Therapeutic : 0 Care: Good Care Ultrasounds: Normal mid trimester US Obstetrical Complications: Other Medical Complications: Other (IDDM, chronic HTN) Past Family/Social History * Past Medical, Surgical, Family and Obstetric Histories reviewed from chart. GBS Status: Positive OB Admission Exam Physical Exam HEENT: WNL Heart: Rhythm Normal Lungs: Clear, Equal Abdomen: WNL Extremities: Normal Reflexes: Normal Heart Rate: 120's Accelerations: Accelerations Present Decelerations: No Decelerations Varibility: Minimum Last 72 hourBlood Glucose Bedside Glucose - 72 Hours Test 10/28/18 22:54 Bedside Glucose 104 mg/dL (70-220) OB Assessment/Plan Reason for admission: other Other Assessment: Non reactive NST Plan: Other Other plan: Admit Continuous monitoring FAIZAN LUIS MD Oct 28, 2018 23:49
[2018-10-29] MEDS: LABETALOL 100 MG TAB PO SCH ×3 (01:23→21:30)
[2018-10-29] MEDS ORDERED: NPH, HUMAN INSULIN ISOPHANE 3ML VIAL SC ONE (01:30)
--- NOTE | 2018-10-29 02:59 | TRIAGE ---
OB Triage Datetime Report Generated by CPN: 10/29/2018 02:58 Datetime: 10/29/2018 02:10 Assessment Type: Admission Assessment Vaginal Bleeding: None Maternal Assessment Level of Consciousness: Fully Conscious DTR's/Clonus: DTRs 2+; No Clonus Headache: Denies Blurred Vision: No Respiratory Effort: Unlabored; Regular Rhythm; Equal Expansion Breath Sounds, Left: Clear and Equal Breath Sounds, Right: Clear and Equal Nausea/Vomiting: Denies RUQ Epigastric Pain: Denies Lower Extremities Edema: None Degree: None Upper Extremities Edema: None Degree: None Facial Edema: None Fall Risk Assessment History of Falling: (0) No Secondary Diagnosis: (0) No Ambulatory Aid: (0) Bedrest/Nurse Assist IV Therapy: (0) No Gait: (0) Normal/Bedrest/Immobile Mental Status: (0) Oriented to Own Ability Fall Score: 0 Fall Risk Score Definition: No Risk: No action required Pain Assessment Pain Scale: 0 Pain Presence: None/Denies Pain Type: N/A Membrane Status: Intact Datetime: 10/29/2018 00:22 Labor Evaluation Monitor Mode: External Heart Rate Monitor Mode: External US Datetime: 10/28/2018 22:56 Heart Rate Monitor Mode: External US Datetime: 10/28/2018 22:51 Labor Evaluation Monitor Mode: External Heart Rate Monitor Mode: External US Datetime: 10/28/2018 21:19 Labor Evaluation Monitor Mode: External Heart Rate Monitor Mode: External US Datetime: 10/28/2018 20:22 Vaginal Exam Dilatation (cms): 0.5 Effacement (%): 0 Station: -3 Exam By: melonie gandhi RN Membrane Status: Intact Datetime: 10/28/2018 20:21 Labor Evaluation Monitor Mode: External Heart Rate Monitor Mode: External US Datetime: 10/28/2018 19:22 Stage of : OB Triage Assessment Type: Triage Maternal Assessment Level of Consciousness: Fully Conscious DTR's/Clonus: DTRs 2+; No Clonus Headache: Denies Blurred Vision: No Respiratory Effort: Unlabored; Regular Rhythm; Equal Expansion Breath Sounds, Left: Clear and Equal Breath Sounds, Right: Clear and Equal Nausea/Vomiting: Denies RUQ Epigastric Pain: Denies Facial Edema: None Temperature Route: Oral Fall Risk Assessment History of Falling: (0) No Secondary Diagnosis: (0) No Ambulatory Aid: (0) Bedrest/Nurse Assist IV Therapy: (0) No Gait: (0) Normal/Bedrest/Immobile Mental Status: (0) Oriented to Own Ability Fall Score: 0 Fall Risk Score Definition: No Risk: No action required Pain Assessment Pain Scale: 0 Pain Presence: None/Denies Pain Type: N/A Pain Location: 0 Datetime: 10/28/2018 19:21 Labor Evaluation Monitor Mode: External Datetime: 10/28/2018 19:00 Time of Arrival: 10/28/2018 18:41 EGA: 35.5 Arrived By: Ambulatory Arrived From: Home Chief Complaint: sent from T clinic for extended monitoring Movement: Present Contractions: Denies/Absent Rupture of Membranes: Denies Vaginal Bleeding: None Vaginal Discharge: Denies Recent Sexual Intercouse: Denies Abdominal Trauma: Not Applicable Patient Complaints: Other Time Provider Notified: 10/28/2018 19:30 Provider Notified: CYNTHIA Initial Plan: EFM Datetime: 10/24/2018 11:38 Fall Score: 0 Fall Risk Score Definition: No Risk: No action required Datetime: 10/24/2018 10:21 EGA: 35.1
[2018-10-29] MEDS ORDERED: LACTATED RINGER'S 1,000 ML IV ONE (04:05)
[2018-10-29] MEDS: LACTATED RINGER'S 1,000 ML IV SCH ×3 (04:49→19:22)
[2018-10-29] MEDS ORDERED: ACETAMINOPHEN 325 MG TAB PO PRN (06:00)
[2018-10-29] MEDS: NPH, HUMAN INSULIN ISOPHANE 3ML VIAL SC SCH (08:35)
[2018-10-29] MEDS: INSULIN ASPART [NOVOLOG] 3 ML PEN SC SCH (08:37)
[2018-10-29] MEDS: ASPIRIN (EC) 81 MG TAB PO SCH (08:40)
[2018-10-29] MEDS: PRENATAL VITAMIN PO SCH (08:48)
[2018-10-29] MEDS ORDERED: DEXTROSE 50% 50 ML SYRINGE IV PRN ×2 (10:30)
[2018-10-29] MEDS ORDERED: GLUCOSE GEL 15 GRAM TUBE BUCCAL PRN (10:30)
[2018-10-29] MEDS ORDERED: GLUCAGON 1 MG INJ IM PRN (10:30)
[2018-10-29] MEDS ORDERED: GLUCOSE GEL 15 GRAM TUBE PO PRN ×2 (10:30)
[2018-10-29] MEDS: BETAMET NA PHOS/AC(6 MG/ML) 2 ML INJ SYG IM SCH (10:38)
[2018-10-29] MEDS ORDERED: INSULIN ASPART [NOVOLOG] 3 ML PEN SC SCH ×3 (11:30→17:05)
--- NOTE | 2018-10-29 13:34 | PN ---
Date/Time of Note Date/Time of Note DATE: 10/29/18 TIME: 13:33 OB Subjective Subjective Subjective Patient has no major complaints and admits good movement OB Objective Objective Objective Vital signs are stable as well as general physical exam heart tones at times are reactive few small variable decelerations seen Perinatologist agrees with the current management which includes administration steroids OB Assessment/Plan Other Assessment: 85+ weeks gestation on admission nonreactive heart tones Other plan: Continue to observe patient in house Administer steroid Consult perinatology next day for possible discharge ANKUR GOTTLIEB MD October 29, 2018 13:34
[2018-10-29] MEDS: INSULIN ASPART [NOVOLOG] 3 ML PEN SC PRN ×2 (17:42→22:26)
[2018-10-29] MEDS ORDERED: NPH, HUMAN INSULIN ISOPHANE 3ML VIAL SC SCH (21:00)
[2018-10-30] MEDS: LACTATED RINGER'S 1,000 ML IV SCH ×2 (04:05→11:29)
[2018-10-30] MEDS: INSULIN ASPART [NOVOLOG] 3 ML PEN SC SCH (07:56)
[2018-10-30] MEDS: NPH, HUMAN INSULIN ISOPHANE 3ML VIAL SC SCH (07:57)
[2018-10-30] MEDS: ASPIRIN (EC) 81 MG TAB PO SCH (09:04)
[2018-10-30] MEDS: LABETALOL 100 MG TAB PO SCH (09:06)
[2018-10-30] MEDS: PRENATAL VITAMIN PO SCH (09:06)
[2018-10-30] MEDS: BETAMET NA PHOS/AC(6 MG/ML) 2 ML INJ SYG IM SCH (10:49)
[2018-10-30] MEDS: INSULIN ASPART [NOVOLOG] 3 ML PEN SC PRN (12:11)
--- NOTE | 2018-10-30 14:20 | DS ---
Date/Time of Note Date/Time of Note DATE: 10/30/18 TIME: 14:18 Obstetrical Discharge Record Final Diagnosis Final Diagnosis: Term not delivered Other Final Diagnosis Category 2 heart tracings: Resolved Perinatologist recommendation patient was discharged home with follow-up with antepartum testing Condition on Discharge Physical Assessment Last Vitals: See nurse's notes Voiding: Yes Bowel Movement: Yes Breast: Soft, non-tender, Filling Fundus: Other (Regnant) Abdomen and Incision: Abdomen is gravid fundal height is 35 heart tones are reactive Calf Tenderness: No Patient Condition: Good ANKUR GOTTLIEB MD October 30, 2018 14:20
--- NOTE | 2018-10-30 14:21 | QN ---
Documentation Comment heart tracings been evaluated by Dr. Shon caban perinatologist who mona mmended to DC patient home with follow-up in the antepartum testing unit of [facility] ANKUR GOTTLIEB MD October 30, 2018 14:21
--- NOTE | 2018-10-30 14:22 | PD.PPDC ---
LONGWALL SHEARER OPERATOR Discharge Instruction Provider Information Physician Information 38-year-old female admitted with category 2 heart tracings Patient has mild variable decelerations once or 2 or 3 times a day heart tracings have been evaluated by Dr. Menendez who recommended finally to discharge patient home with follow-up and antepartum testing unit Condition [id number] Patient Condition: Lqiam4t Good Diet [id number] Diet: Sqoyt3i Special Diet Special Diet: 2000 calorie ADA Activity/Restrictions [id number] Activity: Zsbtp5c May Shower [id number] Restrictions: [id number] No Exercising No Lifting Nothing in the Vagina Follow-up Follow-up with Physician: 1, Day/Days (In antepartum testing unit) Return to clinic for Comment: Refer back to OB triage for decreased movement headache or blurred vision ANKUR GOTTLIEB MD October 30, 2018 14:22
[2018-10-31] MEDS ORDERED: LABE100T7 PO (20:01)
== END 2018-10-30 14:50 | disposition home or self-care (01) | DRG 998 ==
LOC: OBT 18:42 → L-D 18:43 → OBT 23:37 → L-D 23:37 → PP1 10-29 19:20 → L-D 10-30 02:50
PROVIDERS: ADMIT Obstetrics & Gynecology; ATTEND Obstetrics & Gynecology
DX: O76 Abnormality in fetal heart rate and rhythm complicating labor and delivery (principal); O24.313 Unspecified pre-existing diabetes mellitus in pregnancy, third trimester; O10.913 Unspecified pre-existing hypertension complicating pregnancy, third trimester; E11.9 Type 2 diabetes mellitus without complications; Z3A.35 35 weeks gestation of pregnancy
CPT/HCPCS: 76818; 81001; 82962; 85025; 85610; 85730; 86592; 86850; 86900; 86901; 87086; 87340; G0463; J0702; J1815; J7120

== ENCOUNTER 2018-10-31 19:09 | Inpatient (IN) | payer OTHER ==
[~2018-10-31] VITALS: Ht 149.9 cm; Wt 89.2 kg
[~2018-10-31 19:09] MED LIST changes: -IBUP-1544 PO
[2018-10-31 19:48] VITALS: BP 126/74; PULSE 73; RESP 18
[2018-10-31] MEDS ORDERED: LABE100T7 PO (20:01)
[2018-10-31] MEDS ORDERED: ACETAMINOPHEN 325 MG TAB PO PRN (21:30)
[2018-10-31] MEDS ORDERED: AL HYDROX/MG HYDROX/SIMETH 30 ML CUP PO PRN (21:30)
[2018-10-31] MEDS: LACTATED RINGER'S 1,000 ML IV SCH (21:35)
[2018-10-31] MEDS ORDERED: GLUCOSE GEL 15 GRAM TUBE BUCCAL PRN (22:30)
[2018-10-31] MEDS ORDERED: GLUCOSE GEL 15 GRAM TUBE PO PRN ×2 (22:30)
[2018-10-31] MEDS ORDERED: GLUCAGON 1 MG INJ IM PRN (22:30)
[2018-10-31] MEDS ORDERED: DEXTROSE 50% 50 ML SYRINGE IV PRN ×2 (22:30)
--- NOTE | 2018-10-31 22:48 | HP ---
Date/Time of Note Date/Time of Note DATE: 10/31/18 TIME: 22:42 OB - History Hx of Present Free Text/Dictation 38-year-old 4 para 3 at 36 weeks and 1 day of gestation with estimated date of delivery November 27, 2018 Patient is type II diabetic on insulin and chronic hypertensive on labetalol She has been getting testing twice weekly She was sent over from testing for nonreactive NST Patient was recently admitted on October 28 with the same issue of nonreactive NST which she was subsequently admitted for prolonged observation and during that admission patient received betamethasone x2 doses for lung maturity and subsequently discharged home yesterday on October 30 She reports feeling movement, denies any uterine contractions, denies vaginal bleeding or leaking fluid Past obstetrical history significant for x2 Estimated Due Date: November 27, 2018 : 4 Para: 3 Care: Good Care Obstetrical Complications: Other (Type 2 diabetes and chronic hypertension) Past Family/Social History * Past Medical, Surgical, Family and Obstetric Histories reviewed from chart. OB Admission Exam Vital Signs Vital Signs Vital Signs Date Temp Pulse Resp B/P (MAP) Pulse Ox O2 O2 Flow FiO2 Time Delivery Rate 10/31/18 97.8 73 18 126/74 Room Air 19:48 (91) Physical Exam HEENT: WNL Heart: Rhythm Normal Lungs: Clear, Equal Abdomen: WNL Extremities: Normal Reflexes: Normal Cervical Dilatation: None Membranes: Intact Heart Rate: 140's Accelerations: No Accelerations Decelerations: No Decelerations Varibility: Minimum Contractions on Admission: None Last 72 hours Lab Results CBC & BMP 10/31/18 21:45 PROCEDURE: US OB biophysical profile. CLINICAL INDICATION: decreased movements, diabetes TECHNIQUE: Multiple sonographic images of the pelvis were obtained. The images were reviewed on a PACS workstation. COMPARISON: US PELVIS 10/30/2018 FINDINGS: There is a single live intrauterine gestation. Cardiac activity is present with 150 beats per minute. There is a transverse maternal left presentation. The placenta is fundal. There is no evidence of placental abruption. SOMMER = 10 cm. Biophysical profile: movement 2/2 tone 2/2. breathing 2/2 SOMMER 2/2 Total 02/05 RPTAT: AA . IMPRESSION: Normal biophysical profile. . .Jason Ty MD, MD Date Time Electronically viewed and signed by .Jason Ty MD, on 10/31/2018 21:25 .S/ CC: KASEY ASHTON MD [id number] OB Assessment/Plan Reason for admission: other ( 4 para 3 at 36 weeks and 1 day of gestation with type 2 diabetes and chronic hypertension with nonreactive NST) Other plan: Admit to labor and delivery for prolonged observation Perinatology recommendation plan for repeat at 37 weeks of gestation unless earlier for nonreassuring heart rate tracing or maternal indications Copies To: CC: ANKUR GOTTLIEB MD ; KASEY ASHTON MD October 31, 2018 22:48
[2018-10-31] MEDS ORDERED: NPH, HUMAN INSULIN ISOPHANE 3ML VIAL SC SCH (23:30)
[2018-11-01] MEDS: LACTATED RINGER'S 1,000 ML IV SCH ×2 (06:25→18:10)
[2018-11-01] MEDS ORDERED: SEVOFLURANE 15 MIN ONE (07:00)
[2018-11-01] MEDS ORDERED: EPHEDrine 25 MG/5 ML SYG ONE (07:00)
[2018-11-01] MEDS ORDERED: INSULIN REGULAR, HUMAN 100 UNIT/1 ML 3ML VIAL SC ONE ×2 (07:35→17:05)
[2018-11-01] MEDS: ACCU-CHEK XX SCH ×2 (07:46→10:05)
[2018-11-01] MEDS ORDERED: NPH, HUMAN INSULIN ISOPHANE 3ML VIAL SC SCH (08:00)
[2018-11-01] MEDS ORDERED: LABETALOL 100 MG TAB PO SCH (09:00)
[2018-11-01] MEDS ORDERED: PRENATAL VITAMIN PO SCH (09:00)
--- NOTE | 2018-11-01 11:37 | PERINOTE ---
Date/Time of Note Date/Time of Note DATE: 11/01/18 TIME: 11:17 Assessment/Recommendations Other Assessments 38 yo with chronic hypertension and T2DM and a FHT with no accels and periods of minimal/absent variability. Cannot reliably exclude metabolic acidemia and hypoxic injury when there are no accelerations and minimal/absent variablity. Patient's blood pressures have been normal to mild range (highest 159/90). Preeclampsia labs are within normal range and patient denies symptoms. She has already received steroids. Recommendations: 1. Obtain ultrasound for EFW 2. NICU consultation 3. Recommend proceed with delivery I discussed with the patient the risks of delivery at 36 weeks and that the baby may have to go to the NICU. However, with her medical comorbidities, and the FHT as described there are risks to the fetus remaining undelivered. A planned section also has less maternal risks than an emergent section for a prolonged FHT deceleration. Patient verbalized understanding and was agreeable to this plan. OB Subjective Free Text/Dictaton Perinatology consult for nonreactive FHT. 38 yo with IUP at 36w2d. Patient has medical comorbidities of T2DM on insulin and chronic hypertension on labetalol. HPI: Patient was previously admitted on 10/28 from [facility] for nonreactive NST. During that admission, patient received steroids. Patient has multiple decelerations during that admission, however FHT improved and she was discharged. Patient has now been readmitted for nonreactive NST. Her BPP is 8/8 and her amniotic fluid volume is normal. The [facility] ultrasound per the [facility] record was on 10/08/18 and was S=D. PMH: T2DM, chronic hypertension PSH: CS x2 Meds: insulin, labetalol 200mg BID NKDA SH: denies T/A/D FH: non-contributory HD# 2 IUP @ 36w2d Complaints/Overnight events Review of FHT since admission shows no accelerations and multiple periods of absent/minimal variability. Current Medications Current Medications Lactated Ringer's 1,000 ml @ 125 mls/hr Q8H IV Last administered on 11/01/18at 06:25; Admin Dose 125 MLS/HR; Start 10/31/18 at 21:22 Prenat Multivit/ Air Defense Specialist/Iron/Folic Ac () 1 tab DAILY PO Last administered on 11/01/18at 09:37; Admin Dose 1 TAB; Start 11/01/18 at 09:00 Acetaminophen (Tylenol Tab) 650 mg Q4H PRN PO .PAIN OR TEMP; Start 10/31/18 at 21:30 Al Hydrox/Mg Hydrox/Simethicone (Mag-Al Plus) 30 ml Q6H PRN PO .GI UPSET; Start 10/31/18 at 21:30 Insulin Human NPH (Humulin N) 20 unit DAILY@08 SC Last administered on 11/01/18at 09:35; Admin Dose 20 UNIT; Start 11/01/18 at 08:00 Insulin Human NPH (Humulin N) 10 unit DAILY@20 SC Last administered on 10/31/18at 23:45; Admin Dose 10 UNIT; Start 10/31/18 at 23:30 Insulin Human Regular (Humulin R) 10 unit AC DINNER ONCE SC ; Start 11/01/18 at 17:35; Stop 11/01/18 at 17:36 Labetalol HCl (Normodyne) 100 mg BID PO Last administered on 11/01/18at 09:38; Admin Dose 100 MG; Start 11/01/18 at 09:00 Miscellaneous Information 1 ea NOTE XX ; Start 10/31/18 at 22:30 Glucose (Glutose) 15 gm Q15M PRN PO DECREASED GLUCOSE; Start 10/31/18 at 22:30 Glucose (Glutose) 22.5 gm Q15M PRN PO DECREASED GLUCOSE; Start 10/31/18 at 22:30 Dextrose (D50w Syringe) 25 ml Q15M PRN IV DECREASED GLUCOSE; Start 10/31/18 at 22:30 Dextrose (D50w Syringe) 50 ml Q15M PRN IV DECREASED GLUCOSE; Start 10/31/18 at 22:30 Glucagon (Glucagen) 1 mg Q15M PRN IM DECREASED GLUCOSE; Start 10/31/18 at 22:30 Glucose (Glutose) 15 gm Q15M PRN BUCCAL DECREASED GLUCOSE; Start 10/31/18 at 22:30 Diagnostic Test (Pha) (Accu-Chek) 1 ea FBSPP XX Last administered on 11/01/18at 07:46; Admin Dose 1 EA; Start 11/01/18 at 07:30 OB Admission Exam Physical Exam Vitals: Vital Signs Date Temp Pulse Resp B/P (MAP) Pulse Ox O2 O2 Flow FiO2 Time Delivery Rate 10/31/18 97.8 73 18 126/74 Room Air 19:48 (91) Last 72 hourBlood Glucose Bedside Glucose - 72 Hours Test 10/31/18 23:42 11/01/18 07:45 Bedside Glucose 170 mg/dL (70-220) 129 mg/dL (70-220) Last 72 hours Lab Results CBC & BMP 10/31/18 21:45 Liver Function Test 10/31/18 21:45 Alanine Aminotransferase (ALT/SGPT) 23 Albumin 3.1 L Alkaline Phosphatase 111 Aspartate Amino Transf (AST/SGOT) 31 Direct Bilirubin 0.00 Total Protein 6.4 Ultrasound Results P 02/05 SOMMER 10 STARR GIBSON MD November 01, 2018 11:32
[2018-11-01] MEDS ORDERED: CARBOPROST 250 MCG INJ IM PRN ×2 (12:00→22:30)
[2018-11-01] MEDS ORDERED: METHYLERGONOVINE 0.2 MG INJ IM PRN ×2 (12:00→22:30)
[2018-11-01] MEDS ORDERED: CEFAZOLIN 2 GM/50 ML (PMX) 50 ML IVPB SCH (12:00)
[2018-11-01] MEDS ORDERED: MISOPROSTOL 200 MCG TAB PR PRN ×2 (12:00→22:30)
[2018-11-01] MEDS ORDERED: OXYTOCIN 30 UNITS/LR 500 ML IV SCH (12:00)
[2018-11-01] MEDS ORDERED: OXYTOCIN 30 UNITS/LR 500 ML IV PRN ×2 (12:00→22:30)
[2018-11-01] MEDS ORDERED: CITRIC ACID/NA CITRATE 30 ML CUP ONE (15:39)
[2018-11-01] MEDS ORDERED: morphine SULFATE/PF (10 MG/10 ML) INJ ONE (15:45)
[2018-11-01] MEDS ORDERED: CITRIC ACID/NA CITRATE 30 ML CUP PO ONE ×2 (16:00→16:30)
[2018-11-01] MEDS ORDERED: LACTATED RINGER'S 1,000 ML IV ONE (16:26)
--- NOTE | 2018-11-01 16:26 | PREAC ---
Date/Time of Note Date/Time of Note DATE: 11/01/18 TIME: 16:21 Anesthesia Eval and Record Evaluation Time Pre-Procedure Interview DATE: 11/01/18 TIME: 15:27 Age 38 Sex female NPO: 8 hrs Preoperative diagnosis iup @ 36.5 wks., type 2/1 dm, htn., non reassuring status, prev. c/s x 2 Planned procedure repeat c/s Past Medical History Past Medical History: Includes Endo: Diabetes : : (4), Para: (3), Gestational age: (36.5 wks.), [facility] Surgery & Anesthesia Issues No known issue Meds Anticoagulation: No Beta Linnette within 24 hr: Yes Reported Medications Labetalol Hcl* (Labetalol Hcl*) 100 Mg Tablet, 100 MG PO BID, TAB 10/31/18 Insulin NPH Human Isophane (Humulin N) 100 Unit/1 Ml Vial, 10 UNIT SQ AC BREAKFAST BEDTIME, VIAL 10/24/18 Insulin Human Nph (Novolin-N) 100 Units/Ml Susp, 20 SQ AC BREAKFAST 10/24/18 Insulin Human Regular (Novolin-R U-100) 100 Unit/Ml Soln, 10 UNITS SC AC DINNER, EA 10/24/18 Insulin Human Regular (Novolin-R U-100) 100 Unit/Ml Soln, 10 UNITS SC AC BREAKFAST, EA 10/24/18 Multivit/Min/Fol Ac/Iron/Pren* ( S*) 1 Tab Tab, 1 TAB PO DAILY, TAB 02/19/17 Discontinued Reported Medications Lisinopril* (Lisinopril*) 40 Mg Tablet, 100 MG PO BID, #30 TAB 10/24/18 Discontinued Scripts Ibuprofen* (Ibuprofen*) 800 Mg Tablet, 800 MG PO Q8, #30 TAB 0 Refills Prov:ANKUR GOTTLIEB MD 03/11/17 Current Medications Lactated Ringer's 1,000 ml @ 125 mls/hr Q8H IV Last administered on 11/01/18at 06:25; Admin Dose 125 MLS/HR; Start 10/31/18 at 21:22 Prenat Multivit/ [place]/Iron/Folic Ac () 1 tab DAILY PO Last administered on 11/01/18at 09:37; Admin Dose 1 TAB; Start 11/01/18 at 09:00 Acetaminophen (Tylenol Tab) 650 mg Q4H PRN PO .PAIN OR TEMP; Start 10/31/18 at 21:30 Al Hydrox/Mg Hydrox/Simethicone (Mag-Al Plus) 30 ml Q6H PRN PO .GI UPSET; Start 10/31/18 at 21:30 Insulin Human NPH (Humulin N) 20 unit DAILY@08 SC Last administered on 11/01/18at 09:35; Admin Dose 20 UNIT; Start 11/01/18 at 08:00 Insulin Human NPH (Humulin N) 10 unit DAILY@20 SC Last administered on 10/31/18at 23:45; Admin Dose 10 UNIT; Start 10/31/18 at 23:30 Insulin Human Regular (Humulin R) 10 unit AC DINNER ONCE SC ; Start 11/01/18 at 17:05; Stop 11/01/18 at 17:36 Labetalol HCl (Normodyne) 100 mg BID PO Last administered on 11/01/18at 09:38; Admin Dose 100 MG; Start 11/01/18 at 09:00 Miscellaneous Information 1 ea NOTE XX ; Start 10/31/18 at 22:30 Glucose (Glutose) 15 gm Q15M PRN PO DECREASED GLUCOSE; Start 10/31/18 at 22:30 Glucose (Glutose) 22.5 gm Q15M PRN PO DECREASED GLUCOSE; Start 10/31/18 at 22:30 Dextrose (D50w Syringe) 25 ml Q15M PRN IV DECREASED GLUCOSE; Start 10/31/18 at 22:30 Dextrose (D50w Syringe) 50 ml Q15M PRN IV DECREASED GLUCOSE; Start 10/31/18 at 22:30 Glucagon (Glucagen) 1 mg Q15M PRN IM DECREASED GLUCOSE; Start 10/31/18 at 22:30 Glucose (Glutose) 15 gm Q15M PRN BUCCAL DECREASED GLUCOSE; Start 10/31/18 at 2 2:30 Diagnostic Test (Pha) (Accu-Chek) 1 ea FBSPP XX Last administered on 11/01/18at 10:05; Admin Dose 1 EA; Start 11/01/18 at 07:30 Cefazolin Sodium/ Dextrose 50 ml @ 100 mls/hr ONCE IVPB ; Start 11/01/18 at 12:00 Oxytocin/Lactated Ringer's 500 ml @ 125 mls/hr POST IV ; Start 11/01/18 at 12:00 Oxytocin/Lactated Ringer's 500 ml @ 0 mls/hr ONCE PRN IV .VAGINAL BLEEDING; Start 11/01/18 at 12:00 Methylergonovine Maleate (Methergine) 0.2 mg ONCE PRN IM .VAGINAL BLEEDING; Start 11/01/18 at 12:00 Carboprost Tromethamine (Hemabate) 250 mcg ONCE PRN IM .VAGINAL BLEEDING; Start 11/01/18 at 12:00 Misoprostol (Cytotec) 1,000 mcg ONCE PRN MS .VAGINAL BLEEDING; Start 11/01/18 at 12:00 Meds reviewed: Yes Allergies Coded Allergies: No Known Allergy (Unverified , 10/31/18) Allergies Reviewed: Yes Labs/Studies Labs Reviewed: Reviewed by anesthesiologist Result Diagram: 11/01/18 1123 11/01/18 1123 Laboratory Tests 11/01/18 11:23 Blood Bank Test 11/01/18 11:23 Antibody Screen NEGATIVE Blood Type O POSITIVE test: Positive Studies: ECG (n/a), CXR (n/a) Pre-procedure Exam Last vitals Vital Signs Date Temp Pulse Resp B/P (MAP) Pulse Ox O2 O2 Flow FiO2 Time Delivery Rate 10/31/18 97.8 73 18 126/74 Room Air 19:48 (91) Airway: Adequate mouth opening, Adequate thyromental dist Mallampati: Mallampati II Teeth: Normal Lung: Normal Heart: Normal ASA Physical Status ASA physical status: 3 Emergency: E Planned Anesthetic General/MAC: MAC (after baby born) Neuraxial: Spinal Planned Pain Management Sub-arachniod narcotics, Parenteral pain med, Local by surgeon Pre-operative Attestations Prior to commencing anesthesia and surgery, the patient was re-evaluated, there was verification of: *The patient's identity *The results of appropriate recent lab work and preoperative vital signs *The above evaluation not changing prior to induction *Anesthetic plan, risk benefits, alternative and complications discussed with patient/family; questions answered; patient/family understands, accepts and wishes to proceed. Assistant Production Editor used ELMIRA SANCHEZ MD November 01, 2018 16:26
[2018-11-01] MEDS ORDERED: OXYTOCIN 10 UNIT INJ ONE ×2 (16:28→17:00)
[2018-11-01] MEDS ORDERED: ONDANSETRON 4 MG INJ IV PRN (16:30)
[2018-11-01] MEDS ORDERED: HYDROmorphONE 0.5 MG/0.5 ML SYG IV PRN ×2 (16:30)
[2018-11-01] MEDS ORDERED: KETOROLAC 30 MG INJ IV PRN (16:30)
[2018-11-01] MEDS ORDERED: MEPERIDINE 25 MG INJ IV PRN (16:30)
[2018-11-01] MEDS ORDERED: NALOXONE (0.4 MG/ML) INJ IV PRN (16:30)
[2018-11-01] MEDS ORDERED: ZOLPIDEM 5 MG TAB PO PRN (16:30)
[2018-11-01] MEDS ORDERED: MIDAZOLAM 1 MG/ML 2 ML INJ IV PRN (16:30)
[2018-11-01] MEDS ORDERED: NALBUPHINE HCL (10 MG/1 ML) INJ IV PRN (16:30)
[2018-11-01] MEDS ORDERED: METOCLOPRAMIDE 10 MG INJ ONE (16:31)
[2018-11-01] MEDS ORDERED: ONDANSETRON 4 MG INJ ONE (16:31)
[2018-11-01] MEDS ORDERED: MIDAZOLAM 1 MG/ML 2 ML INJ ONE (16:31)
--- NOTE | 2018-11-01 17:04 | OPR ---
Operative Report Planned Procedure Procedure date November 01, 2018 Procedure(s) Repeat Performed by see signature line Prevention Specialist: GARY GHOSH MD Anesthesiologist: ELMIRA SANCHEZ MD Pre-procedure diagnosis 36 weeks and 2 days gestation Previous x2 Persistent category 2 heart tracing Hypertension Type 2 diabetes Perinatologist recommended delivery [id number] Anesthesia Type: [id number] spinal Post-Procedure Post-procedure diagnosis Status post Findings Live Baby in OT position Apgars 8 and 8 Clear amniotic fluid Normal-appearing right and left fallopian tubes and ovary Estimated Blood Loss: 500 - 600 mls Specimen(s) none Grafts/Implant(s) none Complication(s) none Pt Condition post procedure: stable Disposition: PACU Procedure Description Under satisfactory anaesthesia a Pfannenstiel incision was made two fingerbreadth above and parallel to the symphysis of pubis around the previous scar and previous scar was removed Incision was extended laterally to the border of the Recti muscles on either sides. Incision was carried down with sharp and blunt dissection until fascia was reached. Anterior Recti muscle fascia was incised in mid portion and incision extended laterally to the border of skin incision. Fascia was mobilized from muscle superiorly and Recti muscles were from midline using sharp and blunt dissection. Peritoneum was visualized; Avoiding bowel and bladder it was incised . Incision was extended superiorly and inferiorly. Bladder blade was placed. Posterior peritoneum covering the lower segment of the uterus and lower segment of the uterus were incised.Low transverse uterine incision was made on lower segment of the uterus. Incision extended laterally to the border of Round Lig. on either sides and baby was delivered from OT. position . Amniotic fluid appeared clear. Cord blood was obtained and cord had 3 vessels . Placenta was delivered spontaneously and appeared intact and complete. Intrauterine cavity was rubbed with a laparotomy sponge. Uterine incision was closed in 2 layers using running stitches of No1 Monocryl. Hemostasis appeared secure. Ovaries and Fallopian tubes were within normal limits. Announcing needle, lap sponge and instrument count to be correct abdomen was closed in layers as follows: Peritoneum and Recti muscles with running stitches of 2-0 Vicryl. Fascia with running stitch of No 1 PDS. Subcutaneous tissue with running stitches of 2-0 Monocryl and skin was closed using tessie. Patient tolerated the procedure well and was transferred to PAR in good cond ition. ANKUR GOTTLIEB MD November 01, 2018 17:04
[2018-11-01] MEDS ORDERED: KETOROLAC 30 MG INJ IV STA (17:11)
[2018-11-01] MEDS ORDERED: ACETAMINOPHEN 500 MG TAB PO STA (17:11)
[2018-11-01] MEDS ORDERED: CEFAZOLIN 1 GM INJ ONE (17:13)
[2018-11-01] MEDS ORDERED: AZITHROMYCIN 500MG/NS (PMX) 250 ML IVPB ONE (17:30)
[2018-11-01] MEDS: DIPHENHYDRAMINE 50 MG INJ IV PRN ×2 (18:04→19:21)
[2018-11-01 20:30] VITALS: BP 128/71; PULSE 67; RESP 18
[2018-11-01] MEDS ORDERED: LACTATED RINGER'S 1,000 ML IV SCH (22:07)
[2018-11-01] MEDS ORDERED: LANOLIN HPA 1 PKT TOP PRN (22:30)
[2018-11-01] MEDS ORDERED: OXYCODONE/ACETAMINOPHEN (5/325) TAB PO PRN (22:30)
[2018-11-01] MEDS ORDERED: NA PHOSPHATE/BIPHOS 133 ML ENEMA PR PRN (22:30)
[2018-11-01] MEDS ORDERED: HYDROCODONE/APAP (5/325) TAB PO PRN (22:30)
[2018-11-01] MEDS: CEFAZOLIN 2 GM/50 ML (PMX) 50 ML IVPB SCH (23:50)
[2018-11-01] MEDS: CLINDAMYCIN 300 MG CAP PO SCH (23:50)
[2018-11-02] VITALS: BP 119/71; PULSE 60; RESP 16
[2018-11-02] MEDS: DIPHENHYDRAMINE 50 MG INJ IV PRN ×2 (03:19→10:14)
[2018-11-02 04:00] VITALS: BP 106/59; PULSE 67; RESP 20
--- NOTE | 2018-11-02 06:11 | OPPN ---
Date/Time of Note Date/Time of Note DATE: 11/02/18 TIME: 00:30 Anesthesia Follow up Anesthesia Follow up Last documented vital signs Vital Signs Date Temp Pulse Resp B/P (MAP) Pulse Ox O2 O2 Flow FiO2 Time Delivery Rate 11/02/18 98.6 67 20 106/59 96 Room Air 04:00 (75) Respiratory function: WNL Cardiovascular function: WNL Comments S: pt. is pod #1. min. bt pain. min. n/v. min. need for bt pain meds. ie. nsaids/opiates. ambulating. O: vss, afeb., A: min. bt pain. sec. to it mso4. P: no complications. ELMIRA SANCHEZ MD November 02, 2018 06:11
--- NOTE | 2018-11-02 06:12 | PAC ---
Date/Time of Note Date/Time of Note DATE: 11/02/18 TIME: 01:00 Post-Anesthesia Notes Post-Anesthesia Note Last documented vital signs Vital Signs Date Temp Pulse Resp B/P (MAP) Pulse Ox O2 O2 Flow FiO2 Time Delivery Rate 11/02/18 98.6 67 20 106/59 96 Room Air 04:00 (75) Activity: WNL Respiratory function: WNL Cardiovascular function: WNL Mental status: Baseline Pain reasonably controlled: Yes Hydration appropriate: Yes Nausea/Vomiting absent: Yes ELMIRA SANCHEZ MD November 02, 2018 06:12
[2018-11-02] MEDS: CLINDAMYCIN 300 MG CAP PO SCH ×3 (06:15→17:49)
[2018-11-02] MEDS: CEFAZOLIN 2 GM/50 ML (PMX) 50 ML IVPB SCH ×2 (06:15→13:36)
[2018-11-02] MEDS: ACCU-CHEK XX SCH ×4 (07:30→20:05)
[2018-11-02 08:00] VITALS: BP 124/71; PULSE 68; RESP 18
[2018-11-02] MEDS: SENNA/DOCUSATE NA (8.6MG/50MG) TAB PO SCH ×2 (08:09→21:28)
[2018-11-02] MEDS: metFORMIN (XR) 500 MG TAB PO SCH ×2 (08:10→21:27)
[2018-11-02] MEDS: LABETALOL 200 MG TAB PO SCH ×2 (08:16→21:28)
[2018-11-02] MEDS ORDERED: BISACODYL 10 MG SUPP PR ONE (10:30)
[2018-11-02 12:00] VITALS: BP 119/78; PULSE 79
[2018-11-02 15:57] VITALS: BP 131/82; PULSE 72; RESP 18
[2018-11-02 20:00] VITALS: BP 117/70; PULSE 70; RESP 20
--- NOTE | 2018-11-02 20:14 | PN ---
Date/Time of Note Date/Time of Note DATE: 11/02/18 TIME: 20:09 Assessment/Plan VTE Prophylaxis VTE Prophylaxis Intervention: ambulation Lines/Catheters IV Catheter Type (from Nrsg): Peripheral IV Assessment/Plan Assessment/Plan S/P C/S POD # 1 sugars and BPs are reasonably controlled advance diet and ambulate Subjective 24 Hr Interval Summary No BM passinf flatus Constitutional: no complaints, improved, ambulates, BM, flatus, urine output Pain Control: well controlled Exam/Review of Systems Vital Signs Vitals Vital Signs Date Temp Pulse Resp B/P (MAP) Pulse Ox O2 O2 Flow FiO2 Time Delivery Rate 11/02/18 97.7 72 18 131/82 Room Air 15:57 (98) 11/02/18 97 12:00 Intake and Output 11/01/18 11/01/18 11/02/18 1515:00 23:00 07:00 IntakeIntake Total 750 ml 1750 ml 1224 ml OutputOutput Total 600 ml 1949 ml 665 ml BalanceBalance 150 ml -199 ml 559 ml Exam Free Text/Dictation abdomen is soft and not distended with present bowel sounds Constitutional: alert, oriented, well developed Psych: no complaints, nl mood/affect Head: normocephalic, atraumatic Eyes: nl conjunctiva, EOMI, nl lids, nl sclera ENMT: nl external ears & nose, nl lips & teeth, nl nasal mucosa & septum, mucosa pink and moist Neck: supple, non-tender Respiratory: clear to auscultation, normal air movement Cardiovascular: regular rate and rhythm, nl pulses Gastrointestinal: soft, nl liver, spleen, non-tender Musculoskeletal: nl extremities to inspection, nl gait and stance Extremities: normal pulses Neurological: DAY CARE SUPERVISOR II-XII intact, nl mental status, nl speech, nl strength Skin: nl turgor, rash or lesions Lymph: nl lymph nodes Results Result Diagram: 11/02/18 0715 11/01/18 1123 ANKUR GOTTLIEB MD November 02, 2018 20:14
[2018-11-02] MEDS: IBUPROFEN 800 MG TAB PO SCH (21:28)
--- NOTE | 2018-11-02 23:15 | NSTRPT ---
NST Information Datetime Report Generated by CPN: 11/02/2018 23:15 Datetime: 10/31/2018 11:03 NST Information EGA: 36.1 Test Number: 6 Time on Monitor: 10/31/2018 11:48 Time off Monitor: 10/31/2018 12:21 NST Duration (Min): 33 Reason for NST: Chronic Hypertension; Diabetes Mellitus; Other Reason for NST Other: Type I, Class B Test and Monitor Explained: Monitor Explained; Test Explained; Verbalized Understanding Pulse: 81 Resp: 18 SBP: 136 DBP: 86 Test Evaluation NST Interventions: Acoustic Stimulation Patient States Movement: Present Contraction Frequency: NONE FHR Baseline : 145 Variability: Moderate 6-25bpm Accelerations: None Decelerations: None FHR Category: Category I NST Results: Non-Reactive Provider Notified: Dr. Davis and Dr. Villatoro. Comments: To Perinatology: EFW:2985gms. 6 lbs. 9oz. 61%. AC:91%. FBS:92. SOMMER 13.6cm. cephalic. Dr. Davis perinatologist recomends [facility]. Electronically Signed By E-Signature: with User ID: [id number] Datetime: 10/28/2018 11:02 NST Information EGA: 35.5 Test Number: 5 Time on Monitor: 10/28/2018 11:18 Time off Monitor: 10/28/2018 11:58 NST Duration (Min): 40 Reason for NST: Diabetes Mellitus; Other Reason for NST Other: Type I, Class B Test and Monitor Explained: Monitor Explained; Test Explained; Verbalized Understanding Pulse: 96 Resp: 18 SBP: 133 DBP: 97 Test Evaluation NST Interventions: Reposition Patient NST Interventions Other: 1122 reposition to maternal right Patient States Movement: Decreased (Annotations: Data stored by CPN on behalf of user) Contraction Frequency: NONE FHR Baseline : 160 Variability: Minimal - <=5bpm Accelerations: None Decelerations: None FHR Category: Category II NST Results: Non-Reactive Provider Notified: DrTafti/ Comments: To u/s SOMMER 12.2 cm cephalic FBS 92 REPEAT BP-128/88, 120/80, 122/75 Pt takes labetalol BID Pt was sent to the hospital for extended monitoring 10/24 due to tachycardia _ minimal variab ility. Was observed [id number] _ sent home. Labs done 10/24 in triage. Printed lab results for Dr Davis review which were WNL. Dr Davis recommends extended monitoring at the hospital. [address] Villatoro [address] Dr Davis recommendation, NR NST with periods of minimal variability _ all BP readings. Order received to transfer pt to the hospital for evaluation. records _ pre liminary US report faxed to triage _ report given to Adina Chu RN 1730-Pt has not arrived in Triage, call placed to pt's contact phone number, no answer, not able t o leave a voicemail. Electronically Signed By E-Signature: with User ID: [id number] Datetime: 10/24/2018 10:20 NST Information EGA: 35.1 NST Duration (Min): 32 Datetime: 10/21/2018 11:14 NST Information EGA: 34.5 NST Duration (Min): 45 Datetime: 10/06/2018 10:53 NST Information EGA: 32.4 NST Duration (Min): 39 Datetime: 10/02/2018 09:30 NST Information EGA: 32.0 NST Duration (Min): 34
[2018-11-03] MEDS: CLINDAMYCIN 300 MG CAP PO SCH ×5 (00:12→23:13)
[2018-11-03 04:00] VITALS: BP 108/66; PULSE 72; RESP 18
[2018-11-03] MEDS: IBUPROFEN 800 MG TAB PO SCH ×3 (05:57→21:26)
[2018-11-03 08:00] VITALS: BP 104/56; PULSE 70; RESP 18
[2018-11-03] MEDS: ACCU-CHEK XX SCH ×6 (08:00→21:00)
[2018-11-03] MEDS: LABETALOL 200 MG TAB PO SCH ×2 (08:06→21:27)
[2018-11-03] MEDS: metFORMIN (XR) 500 MG TAB PO SCH ×2 (08:06→17:48)
[2018-11-03] MEDS: SENNA/DOCUSATE NA (8.6MG/50MG) TAB PO SCH ×2 (08:06→21:26)
[2018-11-03 15:30] VITALS: BP 118/72; PULSE 99; RESP 20
--- NOTE | 2018-11-03 17:14 | PN ---
Date/Time of Note Date/Time of Note DATE: 11/03/18 TIME: 17:12 Assessment/Plan VTE Prophylaxis VTE Prophylaxis Intervention: ambulation Lines/Catheters IV Catheter Type (from Nrsg): Peripheral IV Assessment/Plan Assessment/Plan Decrease diet to 1800-calorie ADA Metformin dose is doubled Continue to monitor glucose Subjective 24 Hr Interval Summary Patient had bowel movement Constitutional: no complaints, improved, ambulates, BM, flatus, urine output Pain Control: well controlled Exam/Review of Systems Vital Signs Vitals Vital Signs Date Temp Pulse Resp B/P (MAP) Pulse Ox O2 O2 Flow FiO2 Time Delivery Rate 11/03/18 98.2 99 20 118/72 15:30 (87) 11/03/18 Room Air 08:00 11/02/18 97 12:00 Intake and Output 11/02/18 11/02/18 11/03/18 1515:00 23:00 07:00 OutputOutput Total 2800 ml 600 ml BalanceBalance -2800 ml -600 ml Exam Free Text/Dictation Abdomen is soft with firm fundus Incision is healing well without induration and no erythema Blood sugar is elevated Constitutional: alert, oriented, well developed Psych: no complaints, nl mood/affect Head: normocephalic, atraumatic Eyes: nl conjunctiva, EOMI, nl lids, nl sclera ENMT: nl external ears & nose, nl lips & teeth, nl nasal mucosa & septum, mucosa pink and moist Neck: supple, non-tender Respiratory: clear to auscultation, normal air movement Cardiovascular: regular rate and rhythm, nl pulses Gastrointestinal: soft, nl liver, spleen, non-tender Musculoskeletal: nl extremities to inspection, nl gait and stance Extremities: normal pulses Neurological: EXPANDED FUNCTION DENTAL ASSISTANT II-XII intact, nl mental status, nl speech, nl strength Skin: nl turgor, rash or lesions Lymph: nl lymph nodes Results Result Diagram: 11/02/18 0715 11/01/18 1123 ANKUR GOTTLIEB MD November 03, 2018 17:14
[2018-11-03] MEDS ORDERED: metFORMIN 500 MG TAB PO SCH (18:05)
[2018-11-03 21:45] VITALS: BP 119/79; PULSE 79; RESP 18
[2018-11-03 23:42] VITALS: BP 119/72; PULSE 84; RESP 18
[2018-11-04 04:15] VITALS: BP 120/78; PULSE 77; RESP 17
[2018-11-04] MEDS: IBUPROFEN 800 MG TAB PO SCH ×2 (05:35→17:33)
[2018-11-04] MEDS: CLINDAMYCIN 300 MG CAP PO SCH ×3 (05:36→17:33)
[2018-11-04 07:30] VITALS: BP 121/83; PULSE 78; RESP 17
[2018-11-04] MEDS: ACCU-CHEK XX SCH ×2 (07:30→07:35)
[2018-11-04] MEDS: SENNA/DOCUSATE NA (8.6MG/50MG) TAB PO SCH (08:52)
[2018-11-04] MEDS: LABETALOL 200 MG TAB PO SCH (08:53)
[2018-11-04] MEDS: metFORMIN (XR) 500 MG TAB PO SCH (08:58)
[2018-11-04] MEDS ORDERED: DIPHTH/TET/ACEL PERTUSS (ADULT) 0.5 ML VIAL IM* ONE (09:00)
[2018-11-04] MEDS ORDERED: MEASLES,MUMPS,RUBELLA VACCINE INJ SC* ONE (09:00)
--- NOTE | 2018-11-04 12:11 | DS ---
Date/Time of Note Date/Time of Note DATE: 11/04/18 TIME: 12:10 Obstetrical Discharge Record Final Diagnosis Final Diagnosis: Term delivered Other Final Diagnosis Status post Diabetes Section Section: Repeat Complications Gestational Diabetes Condition on Discharge Physical Assessment Last Vitals: See nurse's notes Voiding: Yes Bowel Movement: Yes Breast: Soft, non-tender, Filling Fundus: Firm Abdomen and Incision: Abdomen is soft with present bowel sounds Incision is without induration and erythema Calf Tenderness: No Patient Condition: Good ANKUR GOTTLIEB MD November 04, 2018 12:11
--- NOTE | 2018-11-04 12:15 | DS ---
Date/Time of Note Date/Time of Note DATE: 11/04/18 TIME: 12:13 Discharge Summary Admission/Discharge Info Admit Date/Time October 31, 2018 at 21:20 Discharge Date/Time Status post Discharge Diagnosis Status post Patient Condition: Good Procedures Repeat Hx of Present Illness 38-year-old female underwent repeat Hospital Course Uncomplicated Home Meds Reported Medications Labetalol Hcl* (Labetalol Hcl*) 100 Mg Tablet, 100 MG PO BID, TAB 10/31/18 Insulin NPH Human Isophane (Humulin N) 100 Unit/1 Ml Vial, 10 UNIT SQ AC BREAKFAST BEDTIME, VIAL 10/24/18 Insulin Human Nph (Novolin-N) 100 Units/Ml Susp, 20 SQ AC BREAKFAST 10/24/18 Insulin Human Regular (Novolin-R U-100) 100 Unit/Ml Soln, 10 UNITS SC AC DINNER, EA 10/24/18 Insulin Human Regular (Novolin-R U-100) 100 Unit/Ml Soln, 10 UNITS SC AC BREAKFAST, EA 10/24/18 Multivit/Min/Fol Ac/Iron/Pren* ( S*) 1 Tab Tab, 1 TAB PO DAILY, TAB 02/19/17 Discontinued Reported Medications Lisinopril* (Lisinopril*) 40 Mg Tablet, 100 MG PO BID, #30 TAB 10/24/18 Discontinued Scripts Ibuprofen* (Ibuprofen*) 800 Mg Tablet, 800 MG PO Q8, #30 TAB 0 Refills Prov:ANKUR GOTTLIEB MD 03/11/17 Follow-up Plan To 3 days for staple removal Primary Care Provider Not On Staff Doctor Time spent on discharge: > 30 minutes Pending Labs Laboratory Tests Test 11/03/18 15:27 11/03/18 17:46 11/03/18 21:29 11/03/18 23:11 Bedside 203 170 183 180 Glucose mg/dL (70-220) mg/dL (70-220) mg/dL (70-220) mg/dL (70-220) Test 11/04/18 07:46 Bedside 125 Glucose mg/dL (70-220) ANKUR GOTTLIEB MD November 04, 2018 12:15
--- NOTE | 2018-11-04 15:45 | CONS ---
Assessment/Plan Assessment/Plan Problems: (1) Diabetes mellitus type 2 in obese Status: Chronic Comment: Her sugars are not terribly out of line on the metformin alone but they are also not at goal. Since she already has NPH insulin at home we will go ahead and give low-dose NPH 4 units at bedtime and combo that with the metformin 1000 mg twice daily. She will need to be followed up as an outpatient I have given her my contact information (2) Essential hypertension Status: Chronic Comment: Adequate control on full dose ALEXANDRA inhibitor (3) Obesity (BMI 30-39.9) Status: Chronic Comment: I have counseled her how weight loss would be a significant positive lifestyle maneuver that would make her therapeutics much simpler. (4) Blood type O+ Status: Chronic Comment: Noted. (5) Status post Onset Date: ~ 11/01/2018 Status: Acute Comment: No noted postop complications Consultation Date/Type/Reason Admit Date/Time October 31, 2018 at 21:20 Date of Consultation: November 04, 2018 Type of Consult Endocrine Reason for Consultation Diabetes mellitus type 2 predating this ; G4 now P4 Ab0 status post C-s ection November 01, 2018; essential hypertension; obesity Requesting Provider: ANKUR GOTTLIEB MD Date/Time of Note DATE: 11/04/18 TIME: 15:40 Hx of Present Illness Lexa 38-year-old female G4, P4 Ab0 November 01, 2018 by . She reports a history of elevated blood sugars prior that was treated with single agent therapy metformin 1000 mg twice daily. In addition to this she has a history of hypertension. She is not planning further pregnancies at this moment. Patient reports that she has been on insulin through the and not on the metformin. she has had some modest elevation of blood sugars above the ideal points. During the she had A1c's that the best one I could find in the chart was 7.4 Constitutional: no complaints Eyes: no complaints ENT: no complaints Respiratory: no complaints Cardiovascular: no complaints Gastrointestinal: no complaints Genitourinary: no complaints Musculoskeletal: no complaints Skin: no complaints Endocrine: no complaints (No review of systems to suggest hypercortisolism, or growth hormone disturbance) Past Medical History Medical History: diabetes (Type II), hypertension Home Meds Reported Medications Labetalol Hcl* (Labetalol Hcl*) 100 Mg Tablet, 100 MG PO BID, TAB 10/31/18 Insulin NPH Human Isophane (Humulin N) 100 Unit/1 Ml Vial, 10 UNIT SQ AC BREAKFAST BEDTIME, VIAL 10/24/18 Insulin Human Nph (Novolin-N) 100 Units/Ml Susp, 20 SQ AC BREAKFAST 10/24/18 Insulin Human Regular (Novolin-R U-100) 100 Unit/Ml Soln, 10 UNITS SC AC DINNER, EA 10/24/18 Insulin Human Regular (Novolin-R U-100) 100 Unit/Ml Soln, 10 UNITS SC AC BREAKFAST, EA 10/24/18 Multivit/Min/Fol Ac/Iron/Pren* ( S*) 1 Tab Tab, 1 TAB PO DAILY, TAB 02/19/17 Discontinued Reported Medications Lisinopril* (Lisinopril*) 40 Mg Tablet, 100 MG PO BID, #30 TAB 10/24/18 Discontinued Scripts Ibuprofen* (Ibuprofen*) 800 Mg Tablet, 800 MG PO Q8, #30 TAB 0 Refills Prov:ANKUR GOTTLIEB MD 03/11/17 Medications Current Medications Ibuprofen (Motrin) 800 mg Q8 PO Last administered on 11/04/18at 05:35; Admin Dose 800 MG; Start 11/02/18 at 22:00 Simethicone (Mylicon) 160 mg Q8H PRN PO .GAS; Start 11/01/18 at 22:30 Senna/Docusate Sodium (Senokot-S) 1 tab BID PO Last administered on 11/04/18at 08:52; Admin Dose 1 TAB; Start 11/02/18 at 09:00 Sodium Biphosphate/ Sodium Phosphate (Fleet Enema) 133 ml DAILY PRN [place] .CONSTIPATION; Start 11/01/18 at 22:30 Lanolin (Lanolin Hpa) 1 applic BEDSIDE MEDICATION PRN TOP .NIPPLES Last administered on 11/04/18at 08:52; Admin Dose 1 APPLIC; Start 11/01/18 at 22:30 Oxytocin/Lactated Ringer's 500 ml @ 0 mls/hr ONCE PRN IV .VAGINAL BLEEDING; Start 11/01/18 at 22:30 Methylergonovine Maleate (Methergine) 0.2 mg ONCE PRN IM .VAGINAL BLEEDING; Start 11/01/18 at 22:30 Carboprost Tromethamine (Hemabate) 250 mcg ONCE PRN IM .VAGINAL BLEEDING; Start 11/01/18 at 22:30 Misoprostol (Cytotec) 1,000 mcg ONCE PRN [place] .VAGINAL BLEEDING; Start 11/01/18 at 22:30 Acetaminophen/ Hydrocodone Bitart ([place] (5/325)) 2 tab Q4H PRN PO PAIN LEVEL 1-5; Start 11/01/18 at 22:30 Oxycodone/ Acetaminophen (Percocet (5/ 325)) 2 tab Q4H PRN PO PAIN LEVEL 6-10; Start 11/01/18 at 22:30 Clindamycin HCl (Cleocin) 300 mg Q6 PO Last administered on 11/04/18at 11:33; Ad min Dose 300 MG; Start 11/02/18 at 00:00 Diagnostic Test (Pha) (Accu-Chek) 1 ea FBSPP XX Last administered on 11/04/18 07:30; Admin Dose 1 EA; Start 11/02/18 at 07:30 Labetalol HCl (Normodyne) 200 mg BID PO Last administered on 11/04/18 08:53; Admin Dose 200 MG; Start 11/02/18 at 09:00 Diagnostic Test (Pha) (Accu-Chek) 1 ea AC MEALS AND BEDTIME XX Last administered on 11/04/18at 07:35; Admin Dose 1 EA; Start 11/03/18 at 17:35 Metformin HCl (Glucophage Xr) 1,000 mg BID PO Last administered on 11/04/18 08:58; Admin Dose 1,000 MG; Start 11/03/18 at 18:00 Allergies: Coded Allergies: No Known Allergy (Unverified , 10/31/18) Past Surgical History Past Surgical Hx: other (Status post x3) Family History Significant Family History: diabetes, hypertension Social History Alcohol Use: none Smoking Status: Never smoker Drug Use: none Exam/Review of Systems Exam Vitals Vital Signs Date Temp Pulse Resp B/P (MAP) Pulse Ox O2 O2 Flow FiO2 Time Delivery Rate 11/04/18 98.8 78 17 121/83 Room Air 07:30 (96) 11/02/18 97 12:00 Constitutional: alert, oriented Respiratory: clear to auscultation, normal air movement Cardiovascular: regular rate and rhythm, nl pulses Gastrointestinal: soft, nl liver, spleen, non-tender Neurological: BYPRODUCT ENGINEER II-XII intact, nl mental status, nl speech Results Result Diagram: 11/02/18 0715 11/01/18 1123 Results 24hrs Laboratory Tests Test 11/03/18 17:46 11/03/18 21:29 11/03/18 23:11 11/04/18 07:46 Bedside Glucose 170 183 180 125 Test 11/04/18 12:24 Bedside Glucose 160 Medications Medication Current Medications Ibuprofen (Motrin) 800 mg Q8 PO Last administered on 11/04/18at 05:35; Admin Dose 800 MG; Start 11/02/18 at 22:00 Simethicone (Mylicon) 160 mg Q8H PRN PO .GAS; Start 11/01/18 at 22:30 Senna/Docusate Sodium (Senokot-S) 1 tab BID PO Last administered on 11/04/18at 08:52; Admin Dose 1 TAB; Start 11/02/18 at 09:00 Sodium Biphosphate/ Sodium Phosphate (Fleet Enema) 133 ml DAILY PRN [place] .CONSTIPATION; Start 11/01/18 at 22:30 Lanolin (Lanolin Hpa) 1 applic BEDSIDE MEDICATION PRN [place] .NIPPLES Last administered on 11/04/18at 08:52; Admin Dose 1 APPLIC; Start 11/01/18 at 22:30 Oxytocin/Lactated Ringer's 500 ml @ 0 mls/hr ONCE PRN IV .VAGINAL BLEEDING; Start 11/01/18 at 22:30 Methylergonovine Maleate (Methergine) 0.2 mg ONCE PRN IM .VAGINAL BLEEDING; Start 11/01/18 at 22:30 Carboprost Tromethamine (Hemabate) 250 mcg ONCE PRN IM .VAGINAL BLEEDING; Start 11/01/18 at 22:30 Misoprostol (Cytotec) 1,000 mcg ONCE PRN [place] .VAGINAL BLEEDING; Start 11/01/18 at 22:30 Acetaminophen/ Hydrocodone Bitart ([place] (5/325)) 2 tab Q4H PRN PO PAIN LEVEL 1-5; Start 11/01/18 at 22:30 Oxycodone/ Acetaminophen (Percocet (5/ 325)) 2 tab Q4H PRN PO PAIN LEVEL 6-10; Start 11/01/18 at 22:30 Clindamycin HCl (Cleocin) 300 mg Q6 PO Last administered on 11/04/18 11:33; Admin Dose 300 MG; Start 11/02/18 at 00:00 Diagnostic Test (Pha) (Accu-Chek) 1 ea FBSPP XX Last administered on 11/04/18 07:30; Admin Dose 1 EA; Start 11/02/18 at 07:30 Labetalol HCl (Normodyne) 200 mg BID PO Last administered on 11/04/18 08:53; Admin Dose 200 MG; Start 11/02/18 at 09:00 Diagnostic Test (Pha) (Accu-Chek) 1 ea AC MEALS AND BEDTIME XX Last administered on 11/04/18 07:35; Admin Dose 1 EA; Start 11/03/18 at 17:35 Metformin HCl (Glucophage Xr) 1,000 mg BID PO Last administered on 11/04/18 08:58; Admin Dose 1,000 MG; Start 11/03/18 at 18:00 MACKENZIE FAIRCHILD MD November 04, 2018 15:44
[2018-11-04 17:22] VITALS: BP 129/91; PULSE 88; RESP 18
--- NOTE | 2018-11-04 17:37 | PD.PPDC ---
BUCKET WASH OPERATOR Discharge Instruction Provider Information Physician Information 38-year-old female had repeat at 36+ weeks because of nonreassuring heart tones Diagnosis [id number] Final Diagnosis: Ofcrw1q Status post . Chronic diabetes Condition [id number] Patient Condition: Ecgsg4d Good Diet Yckqg5Kg Diet: Jxjca2j Special Diet Special Diet: 1800-calorie ADA Activity/Restrictions [id number] Activity: Vdedx0r May Shower [id number] Restrictions: Mmavo5r No Exercising No Lifting Nothing in the Vagina [id number] Return to Work or School: [id number] Jan 05, 2019 Wound/Drain Care Instructions Bestl4Bw Wound/Drain Care Instructions: Mzttw5k Keep clean and dry Follow-up Follow-up with Physician: 2, 3, Day/Days (For staple removal in clinic) Return to clinic for [id number] MANAGER PORTABLE Instructions: Humua5e Fever greater than 101 Chills Saelf4Aw OB Instructions: Kyuyo8x Breast Tenderness Depression Comment: Pelvic rest and no hard activity for 2 months Gitjz7Rc Surgical Instructions: Azggk5p Incisional Drainage Incisional Redness ANKUR GOTTLIEB MD November 04, 2018 17:37
[2018-11-04] MEDS ORDERED: IBUP800T48 PO (17:39)
[2018-11-04] MEDS ORDERED: LABE200T25 PO (17:39)
[2018-11-04] MEDS ORDERED: METF500T3 PO (17:40)
[2018-11-04] MEDS ORDERED: ACET325T33 PO (17:43)
[2018-11-04] MEDS ORDERED: ACETAMINOPHEN 325 MG TAB PO PRN (18:00)
[2018-11-04] MEDS ORDERED: NPH, HUMAN INSULIN ISOPHANE 3ML VIAL SC SCH (20:00)
--- NOTE | 2018-11-05 19:31 | DELSUM ---
Delivery Summary A-C Datetime Report Generated by CPN: 11/05/2018 19:31 DELIVERY PERSONNEL Press Maintainer: Healy, Julianna MATERNAL INFORMATION Delivery Anesthesia: Spinal Medications in Delivery: 3 G ANCEF Delivery QBL (ml): 500 Placenta Cultured: No Maternal Complications: Other Other Maternal Complications: type 2 DM, CHTN LABOR SUMMARY EDC: 11/27/2018 00:00 No. Babies in Womb: 1 Attempted: No Labor Anesthesia: None LABOR INFORMATION Reason for Induction: Not Applicable Oxytocin: N/A Group B Beta Strep: Positive (Annotations: IN URINE) Antibiotics # of Doses: 1 Antibiotics Time of Last Dose: 11/01/2018 16:15 Steroids Given: Full Course; >24Hs before Delivery Reason Steroids Not Administered: Not Applicable MEMBRANES Membranes Rupture Method: Artificial Rupture of Membranes: 11/01/2018 16:26 Length of Rupture (hr): 0.03 Amniotic Fluid Color: Clear Amniotic Fluid Amount: Moderate Amniotic Fluid Odor: None STAGES OF LABOR Stage 3 hr: 0 Stage 3 min: 1 CSECTION DELIVERY Primary Indication: Nonreassuring Stat Other Primary Indication: persistant cat 2 tracing Secondary Indication: Other Other Secondary Indication: DM, CHTN CSection Urgency: Non Elective CSection Incidence: Repeat Labor: N/A Elective: Nonelective CSection Incision: Lower Uterine Transverse BABY A INFORMATION Delivery Date/Time: 11/01/2018 16:28 Method of Delivery: Born in Route : No : N/A Forceps: N/A Vacuum Extraction: N/A Shoulder Dystocia : N/A SHOULDER DYSTOCIA BABY A Infant Delivery Date/Time: 11/01/2018 16:28 PRESENTATION/POSITION BABY A Presentation: Cephalic Cephalic Presentation: Vertex Vertex Position: Left Occipital Anterior Breech Presentation: N/A PLACENTA INFORMATION BABY A Placenta Delivery Time : 11/01/2018 16:29 Placenta Method of Delivery: Manual Removal Placenta Status: Delivered SCORES BABY A Heart Rate 1 min: >100 bpm Resp Effort 1 min: Good Cry Reflex Irritability 1 min: Cough/Sneeze/Pulls Away Muscle Tone 1 min: Active Motion Color 1 min: Blue/Pale Resuscitation Effort 1 min: Tactile Stimulation; PPV/NCPAP SCORE 1 MIN: 8 Heart Rate 5 min: >100 bpm Resp Effort 5 min: Good Cry Reflex Irritability 5 min: Cough/Sneeze/Pulls Away Muscle Tone 5 min: Active Motion Color 5 min: Blue/Pale Resuscitation Effort 5 min: Tactile Stimulation SCORE 5 MIN: 8 INFANT INFORMATION BABY A Gestational Age at Delivery: 36.2 Gestational Status: Late - 34- 36.6 Weeks Outcome : Liveborn Condition : Fair Infant Sex: Female IDENTIFICATION/MEDS BABY A ID Band Number: [id number] ID Band Location: Right Leg; Left Arm Sensor Applied: No Sensor Location : Cord Clamp Vitamin K Given : Not Given Erythromycin Given: Not Given WEIGHT/LENGTH BABY A Birthweight (gm): 3235 Infant Weight (lb): 7 Weight (oz): 2 Length (in): 18.50 Infant Length (cm): 46.99 CORD INFORMATION BABY A No. Cord Vessels: 3 Nuchal Cord : N/A Cord Blood Taken: Yes Suction: Mouth; Nose ASSESSMENT BABY A Complications: Multiple Variable Decels Infant Complications- Other: PERSISTENT CATEGORY 2 TRACING Physical Findings at Delivery: Other Physical Findings- Other: DIFFICULTY MAINTAINING O2 SAT, OBSERVE IN NICU Infant Respirations: Appears Normal Typecasting Machine Operator/ALS Called : Yes Care By: SAKINA BHAT AND JOSÉ RT Transferred To: NICU
== END 2018-11-04 19:20 | disposition home or self-care (01) | DRG 786 ==
LOC: OBT 19:09 → L-D 19:10 → PP1 21:20 → OBT 21:20 → L-D 11-01 14:18 → PP1 11-01 20:31
PROVIDERS: ADMIT Obstetrics & Gynecology; ATTEND Obstetrics & Gynecology
PROC: 10D00Z1 Extraction of Products of Conception, Low, Open Approach (ICD-10-PCS; principal; 2018-11-01 15:30)
PROC: 3E0234Z Introduction of Serum, Toxoid and Vaccine into Muscle, Percutaneous Approach (ICD-10-PCS; 2018-11-04)
DX: O24.12 Pre-existing type 2 diabetes mellitus, in childbirth (principal); O60.14X0 Preterm labor third trimester with preterm delivery third trimester, not applicable or unspecified; O10.02 Pre-existing essential hypertension complicating childbirth; O99.214 Obesity complicating childbirth; O76 Abnormality in fetal heart rate and rhythm complicating labor and delivery; O34.219 Maternal care for unspecified type scar from previous cesarean delivery; E11.9 Type 2 diabetes mellitus without complications; Z79.4 Long term (current) use of insulin; Z3A.36 36 weeks gestation of pregnancy; Z37.0 Single live birth; Z23 Encounter for immunization
CPT/HCPCS: 76815; 76818; 80053; 81001; 82962; 84560; 85025; 85384; 85610; 85730; 86592; 86850; 86900; 86901; 87086; 87340; G0463; J0456; J0690; J1200; J1815; J1885; J2250; J2274; J2405; J2590; J2765; J7120